=== PATIENT | male | born 1945 | race Caucasian/White ===

== ENCOUNTER 2022-07-31 14:48 | Emergency (ER) | payer OTHER ==
--- OUTSIDE RECORDS SUMMARY | 2022-07-31 14:53 | XMS REPORT | Continuity of Care Document ---
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 06-09 [facility] insufficie insufficie 00:00: ncy ncy 00 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 06-09 Health artery artery 00:00: stenosis stenosis 00 PAOD PAOD Disease Active [place] (periphera (periphera 04-28 He alth l arterial l arterial 00:00: occlusive occlusive 00 disease) disease) CVA CVA Diagnosis Active 2018-02-21 Mem oria Active 01-18 21:59:00 l 01/18/2018 00:00: Jean Paul vaughn [address] LF [id number] LF 1262-A Diagnosis Active 2018-01-18 Memoria Active 01-18 15:32:00 l 01/18/2018 00:00: Jean Paul vaughn [address] Hyperlipid Problem 2018-04-29 Joey king Hyperlipid 12:35:12 l unspecJean Paul zamorano unspecobed d 04/29/2018 [facility] Alcohol Alcohol Problem 2018-04-29 Me moria dependence dependence 12:35:12 henley Hermann uncomplica uncomplica mary alice mary alice 04/29/2018 [facility] Essential Essential Problem 2018-04-29 Memoria (primary) (primary) 12:35:12 l hypertensi hypertensi He rmann on on 04/29/2018 [facility] Coma Coma Problem 2018-04-29 Memor ia scale, scale, 12:35:12 l eyes open, eyes open, He rmann spontaneou spontaneou s, at s, at arrival to arrival to emergency emergency department department 8 [facility] Coma Coma Problem 2018-04-29 Memor ia scale, scale, 12:35:12 l best motor best motor He rmann response, response, localizes localizes pain, at pain, at arrival to arrival to emergency emergency department department 8 [facility] NIHSS NIHSS Problem 2018-04-29 Memor ia score 0 score 0 12:35:12 l 04/29/2018 Jean Paul vaughn [facility] Nicotine Nicotine Problem 2018-04-29 Memoria dependence dependence 12:35:12 l , Bob cigarettes cigarettes , , uncomplica uncomplica mary alice mary alice 04/29/2018 [facility] 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-29 Memoria and and 12:35:12 l stenosis stenosis Jean Paul vaughn of left of left carotid carotid artery artery 04/29/2018 [facility] Status Status Problem 2018-04-29 Irwin cayla post post 12:35:12 l administra administra He rmann tion of tion of tPA (rtPA) tPA (rtPA) in a in a different different facility facility within the within the last 24 last 24 hours hours prior to prior to admission admission to current to current facility facility 04/29/2018 [facility] CEREBRAL CEREBRAL Diagnosis Active 2018-02-21 Memoria INFARCTION INFARCTION 21:59:00 l , Bob UNSPECIFIE UNSPECIFIE D D Active [facility] Coma Coma Problem 2018-04-29 Memor ia scale, scale, 12:35:12 l best best [place] verbal verbal response, response, none, at none, at arrival to arrival to emergency emergency department department 04/29/2018 [facility] Hemiplegia Problem 2018-04-29 M emoria , Hemiplegia 12:35:12 l unspecifie Jean Paul n d unspecifie affecting d right affecting dominant right side dominant side 04/29/2018 [facility] Hypertensi Hypertens Problem 2018-04-29 Memoria ve emmanuelle 12:35:12 l emergency emergency Herm abundio 04/29/2018 [facility] Paroxysmal Paroxysma Problem 2018-04-29 Memoria atrial l atrial 12:35:12 l fibrillati fibrillati He rmann on on 04/29/2018 [facility] Aphasia Aphasia Problem 2018-04-29 M emoria 04/29/2018 12:35:12 l [facility] History of Past Illness Condition Condition Condition Status Onset Resolution Last Treating Co mments Source Name Details Category Date Date Treatment Clinician Date Cerebral Cerebral Problem 2017-2018-04-29 2018-04-29 Memoria infarction infarction 4-17 12:35:12 12:35:12 l due to due to 03:14: Bob embolism embolism 17 of left of left middle middle cerebral cerebral artery artery 02/22/2018 04/29/2018 [facility] Allergies, Adverse Reactions, Alerts This patient has no known allergies or adverse reactions. Social History Social Habit Start Date Stop Date Quantity Comments Source Tobacco use and 2021-06-10 2021-06-10 Never used [facility] exposure 00:00:00 00:00:00 Sex Ass[birth year] [facility] 00:00:00 00:00:00 Smoking Status Start Date Stop Date Source Former smoker 2021-06-10 00:00:00 2021-06-10 00:00:00 [facility] Social History 2018-01-18 21:57:45 [facility] Medications Ordered Filled Start Stop Current Ordering Indication Dosage Frequency Signature Comments Components Source Medication Medication Date Date Medication? Clinician (SIG) Name Name Apixaban Yes Take by [place] (ELIQUIS 6-29 mouth. Health PO) 12:55: 29 Apixaban Yes Take by [place] (ELIQUIS 6-22 mouth. Health PO) 16:25: 01 Lisinopril No Notes: Memor ia 3-16 (Same as: l 14:53: PrinivilJulissaBob Zestril) NIFEdipine No Notes: Memor ia 60 mg oral 3-16 (Same as: l tablet, 14:00: Adalat CC, Herm abundio extended 00 Procardia release XL) Give on empty stomach. Take 1 hour before or 2 hours after meal; "Avoid grapefruit and grapefruit juice". Do not crush Eliquis 2018-0 No 5 mg, 1 Memoria 3-16 tab, l 14:00: Route: PO, [place] 00 Drug form: TAB, Q12H, Dosing Weight 83.2, kg, Start date: 01/21/18 9:00:00 CDT, Duration: 30 day, Stop date: 02/19/18 21:00:00 CDT Lipitor 2018-0 No Notes: Memoria 3-16 (Same as: l 02:00: Lipitor) Bob 00 apixaban 5 2018-0 Yes 5 mg, PO, Me moria MG Oral 3-15 Q12H, # 60 l Tablet 21:50: tab, 3 Bob [Eliquis] 00 Refill(s) NIFEdipine 2017-0 Yes 60 mg, PO, M emoria 60 mg oral 3-15 Daily, .., l tablet, 21:46: # 30 tab, Chrissy nn extended 00 3 release Refill(s) lisinopril 2017-0 Yes 20 mg = 1 Me moria 20 mg oral 3-15 tab, PO, l tablet 21:46: Daily, # [place] 00 30 tab, 3 Refill(s) atorvastati 2017-0 Yes 40 mg = 1 M emoria n 40 mg 3-15 tab, PO, l oral tablet 21:46: Bedtime, # [place] 00 30 tab, 3 Refill(s) NIFEdipine 2017-0 No Notes: Memor ia 30 mg oral 3-15 (Same as: l tablet, 21:31: Adalat CC, Herm abundio extended 00 Procardia release XL) Give on empty stomach. Take 1 hour before or 2 hours after meal; "Avoid grapefruit and grapefruit juice". Do not crush Metoprolol 2018-0 No 1 mg, Memori a 3-15 Route: l 15:46: IVP, [place] 00 Q5Min, Dosing Weight 83.2, kg, PRN Other -See Comment, Start date: 01/20/18 10:46:00 CDT, Duration: 5 doses or times, Stop date: Limited # of times Fentanyl 2018-0 No 50 Memoria 3-15 microgram, l 15:46: Route: Bob 00 IVP, Q5Min, Dosing Weight 83.2, kg, PRN Pain Score 7-10, Priority: Routine, Start date: 01/20/18 10:46:00 CDT, Duration: 2 doses or times, Stop date: Limited # of times Ondansetron 2018-0 No 4 mg, Memor ia 3-15 Route: l 15:40: IVP, ONCE, Bob 00 Dosing Weight 83.2, kg, PRN Nausea & Vomiting, Start date: 01/20/18 10:40:00 CDT Labetalol 2018-0 No 10 mg, Memori a 3-15 Route: l 15:40: IVP, [place] 00 Q5Min, Dosing Weight 83.2, kg, PRN Elevated BP, Start date: 01/20/18 10:40:00 CDT, Duration: 5 doses or times, Stop date: Limited # of times ANES 2018-0 No 0.625 mg, Memoria Enalaprilat 3-15 Route: l 15:40: IVP, Bob 00 Q5Min, Dosing Weight 83.2, kg, PRN Elevated BP, Start date: 01/20/18 10:40:00 CDT, Duration: 4 doses or times, Stop date: Limited # of times Hydralazine 2018-0 No 10 mg, Irwin cayla 3-15 Route: l 15:40: IVP, Bob 00 Q20Min, Dosing Weight 83.2, kg, PRN Elevated BP, Start date: 01/20/18 10:40:00 CDT, Duration: 2 doses or times, Stop date: Limited # of times Naloxone 2018-0 No 0.4 mg, Memori a 3-15 Route: l 15:40: IVP, Bob 00 Q2MIN, Dosing Weight 83.2, kg, PRN Narcotic Reversal, Start date: 01/20/18 10:40:00 CDT, Duration: 8 doses or times, Stop date: Limited # of times Flumazenil 2018-0 No 0.2 mg, Irwin cayla 3-15 Route: l 15:40: IVP, PRN, Bob 00 Dosing Weight 83.2, kg, PRN Benzodiaze pine Reversal, Initial dose, Start date: 01/20/18 10:40:00 CDT, Duration: 30 day, Stop date: 02/19/18 10:39:00 CDT Omnipaque 2017- No 150 ml, Memor ia 350 3-15 Route: l 14:41: INTRAARTER [place] 00 IAL, Dosing Weight 83.2, kg, ONCE, Start date: 01/20/18 9:41:00 CDT, Stop date: 01/20/18 9:41:00 CDT Aspirin 325 No Notes: Irwin cayla MG Enteric 3-15 Take with l Coated 14:00: food. Bob Tablet 00 NIFEdipine No Notes: Memor ia 30 mg oral 3-15 (Same as: l tablet, 13:20: Adalat CC, Herm abundio extended 00 Procardia release XL) Give on empty stomach. Take 1 hour before or 2 hours after meal; "Avoid grapefruit and grapefruit juice". Do not crush Lisinopril No Notes: Memor ia 3-15 (Same as: l 11:49: Prinivil, Bob 00 Zestril) heparin No Notes: Memoria sodium, 3-14 porcine l porcine 21:00: heparin Bob 2500 UNT/ML 00 Injectable Solution Dextrose No 25 gm, 50 Irwin cayla 50% Syringe 3-14 mL, Route: l 16:14: IVP, Drug [place] 00 Form: INJ, Dosing Weight 83.2, kg, PRN, PRN Abnormal Lab Result, Start date: 01/19/18 11:14:00 CDT, Duration: 30 day, Stop date: 02/18/18 11:13:00 CDT Regular No 60 units) Irwin cayla Insulin, 3-14 WASTE: F/P l Human 100 16:14: - Black; E He rmann UNT/ML 00 - Injectable Municipal Solution Trash Bin Stable for 28 days at room temperatur e Expires in days from ____Date Insulin No 8 unit, Memoria regular 3-14 Route: l 16:11: SUB-Q, Bob 00 TID-Before Meals, Dosing Weight 83.2, kg, PRN Blood Glucose Results, Start date: 01/19/18 11:11:00 CDT, Duration: 30 day, Stop date: 02/18/18 11:10:00 CDT Glucagon 2017-0 No 1 mg, Memoria 3-14 Route: IM, l 16:11: PRN, Dosing Weight 83.2, kg, PRN Blood Glucose Results, Start date: 01/19/18 11:11:00 CDT, Duration: 30 day, Stop date: 02/18/18 11:10:00 CDT Dextrose 2018-0 No 25 mL, Memoria 50% Syringe 3 Route: l 16:11: IVP, Dosing Weight 83.2, kg, PRN, PRN Blood Glucose Results, Start date: 01/19/18 11:11:00 CDT, Duration: 30 day, Stop date: 02/18/18 11:10:00 CDT Regular 2018-0 No 3 unit, Memoria Insulin, 01-19 Route: l Human 100 16:11: SUB-Q, Jean Paul n UNT/ML 00 PRN, Injectable Dosing Solution Weight 83.2, kg, PRN Abnormal Lab Result, Start date: 01/19/18 11:11:00 CDT, Duration: 30 day, Stop date: 02/18/18 11:10:00 CDT metoprolol No Notes: Memor ia tartrate 01-19 (Same as: l 16:07: Lopressor) 12.5 mg=1/2 X 25 mg TAB Versed No 1 mg, Memoria 3-14 Route: l 16:00: IVP, ONCE, Dosing Weight 83.2, kg, Start date: 01/19/18 11:00:00 CDT, Stop date: 01/19/18 11:00:00 CDT Versed No Notes: Memoria 3-14 (Same as: l 15:43: Versed) MEDICATION WASTE Product Size: 2 mg Product Wasted: ___ mg Hydralazine No Notes: Irwin cayla 3-14 (Same as: l 15:13: Apresoline ) Push over 5 minutes Plavix No Notes: Memoria 3-14 (Same As: l 14:14: Plavix) Aspirin 2018-0 No Notes: Do Memor ia 3-14 not crush l 14:14: or chew. [place] 00 (Same As: Ecotrin) sennosides, No Notes: Irwin cayla INTERMEDIATE 3-14 (Same as: l 14:00: Senokot) [place] 00 Docusate No Notes: Memoria 3-14 (Same as: l 14:00: Colace) [place] 00 (Do Not Crush) Sodium No 1,000 mL, Memori a Chloride 3-14 Rate: 50 l 0.9% IV 10:22: ml/hr, Bob 1,000 mL 00 Infuse over: 20 hr, Route: IV, Dosing Weight 85.4 kg, Total Volume: 1,000, Start date: 01/19/18 5:22:00 CDT, Duration: 30 day, Stop date: 02/18/18 5:21:00 CDT, 2.02, m2 Calcium No Notes: Memoria Carbonate 3-14 (Same As: l 500 MG 05:04: Tums) [place] Chewable 00 Calcium Tablet Carbonate 500 mg = 200 mg elemental calcium Dose = mg calcium carbonate ( mg elemental calcium) potassium No Notes: Memori a phosphate 3-14 (Same as: l 05:04: K Bob 00 Phosphate. ) 1 mMol phoshate has 1.47 mEq potassium Infuse over 4 hours sodium No 45 mmol, Memoria phosphate 3-14 15 mL, l 05:04: Route: Bob 00 IVPB, PRN, Dosing Weight 85.4, kg, PRN Abnormal Lab Result, Start date: 01/19/18 0:04:00 CDT, Duration: 30 day, Stop date: 02/18/18 0:03:00 CDT, FOR ICU USE ONLY Potassium No Notes: Memori a Chloride 3-14 (Same as: l 05:04: Potassium [place] 00 Chloride) Magnesium No Notes: Memori a Sulfate 3-14 WASTE: F/P l 05:04: - Sink; E [place] - Municipal Trash Bin Calcium No Notes: Memoria Gluconate 3-14 WASTE: F/P l 05:04: - Sink; E [place] - Municipal Trash Bin Magnesium No Notes: Memori a Oxide -14 (Same as: l 05:04: Mag-Ox Bob 00 400) Magnesium oxide 691pi=640s g elemental magnesium Dose=____m g magnesium oxide (___mg elemental magnesium) potassium No Notes: Memori a phosphate-s - (Same as: l odium 05:04: Phos-NaK) Bob phosphate 00 Each 1.5 250 mg-280 gm pkt has mg-160 mg 250mg oral powder phosphorou for s. Mix reconstitut w/2.5oz ion water and stir. Saline No Notes: Memoria Flush 0.9% 01-19 Same as: l 02:00: BD Posiflush Sterile atorvastati No Notes: Irwin cayla n - Same as l 02:00: Lipitor Plavix No Notes: ( Memoria 3-13 Same as: l 22:37: Plavix) Bob 00 Aspirin No Notes: (Do Irwin cayla -13 Not Crush) l 22:36: Do not crush or chew. Saline No Notes: Memoria Flush 0.9% 01-18 (Same as: l 21:33: BD Posiflush) Labetalol No 105 mmHg, Me moria 3-13 Start l 21:33: date: Bob 00 01/18/18 16:33:00 CDT, Duration: 30 day, Stop date: 02/17/18 16:32:00 CDT Nicardipine No 20 mg, 200 Memoria 3-13 mL, Rate: l 21:33: Titrate, Start Dose: 5 mg/hr, Titration: 2.5 mg/hour every 15 minutes, Goal(s): SBP 140-180 mmHg, Max Dose: 15 mg/hr, Route: IV, Dosing Weight 85 kg, Total Volume: 200, Start date: 01/18/18 16:33:00 CDT, Duration: 30 day, Stop delmis... Cardene 40 No Notes: Memor ia mg in NS 01-18 Same as: l 200 mL 20:39: Charity Rojas (Titrate.) 00 Concentrat IV 40 mg ion: (0.2 mg /1 ml ) Labetalol No 10 mg, Memori a 3-13 Route: IV, l 20:08: ONCE, Bob 00 Dosing Weight 85, kg, Start date: 01/18/18 15:08:00 CDT, Stop date: 01/18/18 15:08:00 CDT Saline 0 No Notes: Memoria Flush 0.9% 3-13 (Same as: l 19:36: BD [place] Posiflush) Alteplase No 68.85 mg, Mem oria 3-13 Route: IV, l 19:35: ONCE, kg, [place] 00 Priority: STAT, Start date: 01/18/18 14:35:00 CDT, Stop date: 01/18/18 14:35:00 CDT Sodium 0 No 50 mL, Memoria Chloride 01-18 Rate: 75 l 0.9% IV 50 19:35: ml/hr, Chrissy nn mL 00 Infuse over: 0.7 hr, Route: IV, Dosing Weight 85.4 kg, Total Volume: 50, Priority: STAT, Start date: 01/18/18 14:35:00 CDT, Stop date: 02/17/18 14:34:00 CDT iodixanol No 100 mL, Memor ia 01-18 Route: l 19:15: IVP, Drug [place] 00 Form: SOLN, kg, ONCALL, STAT, Start date: 01/18/18 14:15:00 CDT, Duration: 1 doses or times, Dose = 2.2ml/kg, Max dose = 100ml -- "To be infused by Radiology Staff ONLY" Saline No Notes: Memoria Flush 0.9% 3-13 (Same as: l 19:13: BD [place] Posiflush) Vital Signs Vital Name Observation Time Observation Value Comments Source Respitory Rate 2018-01-21 14:00:00 Ángel Keller Systolic (mm Hg) 2018-01-21 14:00:00 Irwin Rojas Diastolic (mm Hg) 2018-01-21 14:00:00 Mem orial Bob Respitory Rate 2018-01-21 13:00:00 Memori al [place] Systolic (mm Hg) 2018-01-21 13:00:00 Irwin rial Bob Diastolic (mm Hg) 2018-01-21 13:00:00 Mem orial Bob Temperature Oral (F) 2018-01-21 12:10:00 97.7 F [facility] [place] Respitory Rate 2018-01-21 10:20:00 Memori al Bob Systolic (mm Hg) 2018-01-21 09:22:00 Irwin rial Bob Diastolic (mm Hg) 2018-01-21 09:22:00 Mem orial Bob Temperature Oral (F) 2018-01-21 09:22:00 100.5 F Memorial Bob Temperature Oral (F) 2018-01-21 04:59:00 99.9 F [facility] [place] Heart Rate 2018-01-19 16:59:00 [facility] [place] Heart Rate 2018-01-19 16:43:00 [facility] [place] Heart Rate 2018-01-19 16:28:00 Memorial Bob Weight 2018-01-19 11:08:00 [facility] [place] BMI Calculated 2018-01-18 21:35:00 Memori al [place] Weight 2018-01-18 21:35:00 Memorial Bob Height 2018-01-18 21:35:00 167.64 cm [facility] [place] Weight 2018-01-18 19:57:00 Memorial Bob Height 2018-01-18 19:57:00 170.18 cm Memorial Bob BMI Calculated 2018-01-18 19:57:00 Memori al Bob Procedures Procedure Date / Time Performing Clinician Source Performed Selective catheter 2018-01-20 13:56:00 [facility] [place] placement, vertebral artery, unilateral, with angiography of the ipsilateral vertebral circulation and all associated radiological supervision and interpretation, includes angiography of the cervicocerebral arch, when performed Carpal tunnel release [facility] ermann bilateral Knee replacement left [facility] ermann Encounters Start End Encounter Admission Attending Care Care Encounter Source Date/Time Date/Time Type Type Clinicians Facility Department ID 2021-05-06 Outpatient [facility] [id number] [place] 14:17:19 Health 2021-05-06 Outpatient [facility] [id number] [place] 14:16:24 Health 2021-05-06 Outpatient [facility] [id number] [place] 14:11:46 [facility] 2021-03-28 Outpatient RENE [facility] [id number] [place] 10:47:13 [facility] 2021-06-10 2021-06-10 Office Rene [facility] [id number] [place] 10:44:11 12:00:52 Visit [facility] [id number] [place] [address] [id number] 2021-04-29 2021-04-29 Office Rene [facility] [id number] [place] 08:09:44 10:47:59 Visit [facility] [id number] [place] [address] [id number] 2018-01-18 2018-01-21 Inpatient Pending sale to [facility] [id number] Memoria 19:02:00 17:40:[address] 2018-01-18 2018-01-21 Outpatient Osiris [facility] [id number] 14:02:00 12:40:[address] [place] [address] Results Test Description Test Time Test Comments Results Result Comments Source HEMATOLOGY 2018-01-21 06:13:00 Test Item Value Reference Range Interpretation Comme nts Lymphocytes # (test code = Lymphocytes #) 1.8 1.0-5.5 [id number] 06:13:00 Test Item Value Reference Range Interpretation Comments Eosinophils # (test code 0.2 See_Comment [A utomated message] The = Eosinophils #) system whic h generated this result tra nsmitted reference range : <=0.5. The reference r melody was not used to int erpret this result as normal/abnormal . [id number] 06:13:00 Test Item Value Reference Range Interpretation Comments Eosinophils (test code = 1.6 See_Comment [A utomated message] The Eosinophils) system which ge nerated this result tra nsmitted reference range : <=4.0. The reference r melody was not used to int erpret this result as normal/abnormal . [id number] 06:13:00 Test Item Value Reference Range Interpretation Comments MCHC (test code = MCHC) 34.8 32.0-36.0 [facility]P[id number] 06:13:00 Test Item Value Reference Range Interpretation Comments RDW (test code = RDW) 13.3 11.5-14.5 [id number] 06:13:00 Test Item Value Reference Range Interpretation Comments RBC (test code = RBC) 3.35 4.70-6.10 [facility] Hospit[id number] 06:13:00 Test Item Value Reference Range Interpretation Comments MCV (test code = MCV) 103.6 80.0-94.0 [facility] Hospital[id number] 06:13:00 Test Item Value Reference Range Interpretation Comments Hct (test code = Hct) 34.7 42.0-54.0 [facility] Hospit[id number] 06:13:00 Test Item Value Reference Range Interpretation Comments MCH (test code = MCH) 36.0 pg 27.0-31.0 [facility] Hospit[id number] 06:13:00 Test Item Value Reference Range Interpretation Comments Hgb (test code = Hgb) 12.1 14.0-18.0 [facility] H[id number] 06:13:00 Test Item Value Reference Range Interpretation Comments WBC (test code = WBC) 9.8 3.7-10.4 [facility] Hospit[id number] 06:13:00 Test Item Value Reference Range Interpretation Comments Platelet (test code = Platelet) 175 133-450 [facility] Hospit[id number] 06:13:00 Test Item Value Reference Range Interpretation Comments MPV (test code = MPV) 7.9 7.4-10.4 [facility] [id number] 06:13:00 Test Item Value Reference Range Interpretation Comments Ca Norm WB (test code = Ca Norm WB) 1.12 1.05-1.25 [facility] [id number] 06:13:00 Test Item Value Reference Range Interpretation Comments Ca Ion WB (test code = Ca Ion WB) 1.11 1.05-1.25 [facility]2018-03-16 06:13:00 Test Item Value Reference Range Interpretation Comments Magnesium Lvl (test code = Magnesium 1.8 1.8-2.4 Lvl) [facility]2018-03-16 06:13:00 Test Item Value Reference Range Interpretation Comments Phosphorus (test code = Phosphorus) 3.7 2.5-4.5 [facility]2018-03-16 06:13:00 Test Item Value Reference Range Interpretation Comments eGFR (test code = eGFR) 112 [facility]2018-03-16 06:13:00 Test Item Value Reference Range Interpretation Comments Potassium Lvl (test code = Potassium 3.8 3.5-5.1 Lvl) [facility]2018-03-16 06:13:00 Test Item Value Reference Range Interpretation Comments Chloride Lvl (test code = Chloride Lvl) 108 95-109 [facility]2018-03-16 06:13:00 Test Item Value Reference Range Interpretation Comments Calcium Lvl (test code = Calcium Lvl) 8.7 8.5-10.5 [facility]2018-03-16 06:13:00 Test Item Value Reference Range Interpretation Comments CO2 (test code = CO2) 22 24-32 [facility]2018-03-16 06:13:00 Test Item Value Reference Range Interpretation Comments Creatinine Lvl (test code = Creatinine 0.46 0.50-1.40 Lvl) [facility]2018-03-16 06:13:00 Test Item Value Reference Range Interpretation Comments Glucose Lvl (test code = Glucose Lvl) 86 70-99 [facility]2018-03-16 06:13:00 Test Item Value Reference Range Interpretation Comments BUN (test code = BUN) 9 7-22 [facility]2018-03-16 06:13:00 Test Item Value Reference Range Interpretation Comments Sodium Lvl (test code = Sodium Lvl) 141 135-145 [facility]2018-03-16 06:13:00 Test Item Value Reference Range Interpretation Comments AGAP (test code = AGAP) 14.8 10.0-20.0 [facility] Hospit[id number] 06:13:00 Test Item Value Reference Range Interpretation Comments Lymphocytes (test code = Lymphocytes) 18.8 20.0-40.0 [facility] Hospit[id number] 06:13:00 Test Item Value Reference Range Interpretation Comments Monocytes (test code = Monocytes) 9.7 2.0-12.0 [facility] H[id number] 06:13:00 Test Item Value Reference Range Interpretation Comments Macrocyte (test code = 1+ *ABN*(01/21/18 Macrocyte) 1:13 AM) [facility] Ho[id number] 06:13:00 Test Item Value Reference Range Interpretation Comments Segs (test code = Segs) 69.6 45.0-75.0 [facility] Hos[id number] 06:13:00 Test Item Value Reference Range Interpretation Comments Segs-Bands # (test code = Segs-Bands #) 6.8 1.5-8.1 [facility] Hos[id number] 06:13:00 Test Item Value Reference Range Interpretation Comments Monocytes # (test code 1.0 See_Comment [Aut omated message] The = Monocytes #) system which generated this result tra nsmitted reference range : <=0.8. The reference r melody was not used to int erpret this result as normal/abnormal . [facility] Hos[id number] 06:13:00 Test Item Value Reference Range Interpretation Comments Basophils (test code = 0.3 See_Comment [Aut omated message] The Basophils) system which ge nerated this result tra nsmitted reference range : <=1.0. The reference r melody was not used to int erpret this result as normal/abnormal . [facility] [id number] 18:14:00 Test Item Value Reference Range Interpretation Comments Troponin-T (test code 0.020 See_Comment [Auto mated message] The = Troponin-T) system which g enerated this result transmit mary alice reference range : <=0.100. The reference r melody was not used to interpr et this result as mark l/abnormal. [facility] [id number] 18:14:00 Test Item Value Reference Range Interpretation Comments Total CK (test code = Total CK) 472 12-191 [facility] [id number] 18:14:00 Test Item Value Reference Range Interpretation Comments Troponin-I (test code 0.32 See_Comment [Auto mated message] The = Troponin-I) system which g enerated this result transmit mary alice reference range : <=0.40. The reference r melody was not used to interpr et this result as mark l/abnormal. [facility] [id number] 18:14:00 Test Item Value Reference Range Interpretation Comments CK MB Index (test 0.6 1 See_Comment [Automate d message] The code = CK MB Index) system w [employer] generated this result transmit mary alice reference range : <=2.5. The reference range was not used to interpr et this result as mark l/abnormal. [facility] BrookannCARDIAC [id number] 18:14:00 Test Item Value Reference Range Interpretation Comments CK MB (test code = CK MB) 2.9 0.5-3.6 [facility]OkiwjjkLXYVHWXKMP6338-22-92 14:32:00 Test Item Value Reference Range Interpretation Comments POC Activated Clotting Time (test code 137 s = POC Activated Clotting Time) [facility] BrookannCARhipages.com.auAC YSTYARW9430-46-57 13:49:00 Test Item Value Reference Range Interpretation Comments CK MB (test code = CK MB) 3.4 0.5-3.6 [facility] BrookannCARhipages.com.auAC KTSNTPJ2336-48-63 13:49:00 Test Item Value Reference Range Interpretation Comments CK MB Index (test 0.7 1 See_Comment [Automate d message] The code = CK MB Index) system w [employer] generated this result transmit mary alice reference range : <=2.5. The reference range was not used to interpr et this result as mark l/abnormal. [facility] BrookUn[facility]2018-03-15 13:49:00 Test Item Value Reference Range Interpretation Comments Troponin-I (test code 0.33 See_Comment [Auto mated message] The = Troponin-I) system which g enerated this result transmit mary alice reference range : <=0.40. The reference r melody was not used to interpr et this result as mark l/abnormal. [facility] BrookEssess, IncAC [id number] 13:49:00 Test Item Value Reference Range Interpretation Comments Troponin-T (test code 0.063 See_Comment [Auto mated message] The = Troponin-T) system which g enerated this result transmit mary alice reference range : <=0.100. The reference r melody was not used to interpr et this result as mark l/abnormal. [facility] babberly2018-03-15 13:49:00 Test Item Value Reference Range Interpretation Comments Total CK (test code = Total CK) 511 12-191 [facility] BrookCkepznnWUOTEYZTNJ6419-60-53 09:10:00 Test Item Value Reference Range Interpretation Comments Hgb (test code = Hgb) 12.6 14.0-18.0 [facility] BrookMeiidleKOBRTZENCJ1511-36-20 09:10:00 Test Item Value Reference Range Interpretation Comments MCV (test code = MCV) 104.2 80.0-94.0 [facility] BrookIzvjaysBTAELWYKET5309-39-29 09:10:00 Test Item Value Reference Range Interpretation Comments MCH (test code = MCH) 35.8 pg 27.0-31.0 [facility] BrookVsltyksVFUOUNOBOV0872-39-38 09:10:00 Test Item Value Reference Range Interpretation Comments MPV (test code = MPV) 7.4 7.4-10.4 [facility] BrookRddnolvZWNTRUFZEX8286-63-21 09:10:00 Test Item Value Reference Range Interpretation Comments MCHC (test code = MCHC) 34.4 32.0-36.0 [facility] BrookGdpxvvoRMEOVFKSLM1369-23-57 09:10:00 Test Item Value Reference Range Interpretation Comments RDW (test code = RDW) 13.6 11.5-14.5 [facility] BrookBztzxxqYPELKYBEXM2571-63-04 09:10:00 Test Item Value Reference Range Interpretation Comments Platelet (test code = Platelet) 170 133-450 [facility] BrookannPARATHYROID [id number] 09:10:00 Test Item Value Reference Range Interpretation Comments Ca Ion WB (test code = Ca Ion WB) 1.09 1.05-1.25 [facility] BrookannPARATHYROID [id number] 09:10:00 Test Item Value Reference Range Interpretation Comments Ca Norm WB (test code = Ca Norm WB) 1.11 1.05-1.25 [facility] HermannCHEM [id number] 09:10:00 Test Item Value Reference Range Interpretation Comments Magnesium Lvl (test code = Magnesium 1.9 1.8-2.4 Lvl) [facility] BrookannCHEM [id number] 09:10:00 Test Item Value Reference Range Interpretation Comments Phosphorus (test code = Phosphorus) 2.6 2.5-4.5 [facility] AhtzmbzGEXABNBGIVNV5468-47-63 09:10:00 Test Item Value Reference Range Interpretation Comments AGAP (test code = AGAP) 12.8 10.0-20.0 [facility]QbfqxprDRWMABBMADCJ3054-36-88 09:10:00 Test Item Value Reference Range Interpretation Comments eGFR (test code = eGFR) 116 [facility] HospitalDdbwufoUPTARDNHHLBT7701-23-35 09:10:00 Test Item Value Reference Range Interpretation Comments Glucose Lvl (test code = Glucose Lvl) 83 70-99 [facility] HospitalRmcrbizPLMSUMNNWSYU3645-94-55 09:10:00 Test Item Value Reference Range Interpretation Comments BUN (test code = BUN) 10 7-22 [facility] HospitalOcuohyzYRRROXLUPWYX8676-06-35 09:10:00 Test Item Value Reference Range Interpretation Comments Creatinine Lvl (test code = Creatinine 0.42 0.50-1.40 Lvl) [facility] HospitalDuwyyiyRWXDDVDWFCSJ7030-57-63 09:10:00 Test Item Value Reference Range Interpretation Comments Sodium Lvl (test code = Sodium Lvl) 141 135-145 [facility] HospitalMkenvdeHZPFYNYYERPI5283-97-74 09:10:00 Test Item Value Reference Range Interpretation Comments Potassium Lvl (test code = Potassium 3.8 3.5-5.1 Lvl) [facility] HospitalNtlbftiWDNFHQKVXHOU8045-12-71 09:10:00 Test Item Value Reference Range Interpretation Comments CO2 (test code = CO2) 24 24-32 [facility] HospitalTjweffeGNVLAAUHTMYH1235-95-35 09:10:00 Test Item Value Reference Range Interpretation Comments Chloride Lvl (test code = Chloride Lvl) 108 95-109 [facility] HospitalYmditntTECDSFCLGBGS9222-43-41 09:10:00 Test Item Value Reference Range Interpretation Comments Calcium Lvl (test code = Calcium Lvl) 8.6 8.5-10.5 [facility]IdarxpmIDBALXOGXX4877-84-80 09:10:00 Test Item Value Reference Range Interpretation Comments Eosinophils (test code = 1.2 See_Comment [A utomated message] The Eosinophils) system which ge nerated this result tra nsmitted reference range : <=4.0. The reference r melody was not used to int erpret this result as normal/abnormal . [facility] HospitalZbjxubxTJMNEVZBTC8047-38-97 09:10:00 Test Item Value Reference Range Interpretation Comments Monocytes (test code = Monocytes) 10.4 2.0-12.0 [facility] HospitalRlnuxqgGEXHQOCZRV0283-91-50 09:10:00 Test Item Value Reference Range Interpretation Comments Segs-Bands # (test code = Segs-Bands #) 6.4 1.5-8.1 [facility] HospitalGqkxfgdNXJNXXPPXB0238-54-38 09:10:00 Test Item Value Reference Range Interpretation Comments Basophils (test code = 0.4 See_Comment [Aut omated message] The Basophils) system which ge nerated this result tra nsmitted reference range : <=1.0. The reference r melody was not used to int erpret this result as normal/abnormal . [facility] HospitalZftzvyoSGPAXQFLYQ7850-29-12 09:10:00 Test Item Value Reference Range Interpretation Comments Monocytes # (test code 1.0 See_Comment [Aut omated message] The = Monocytes #) system which generated this result tra nsmitted reference range : <=0.8. The reference r melody was not used to int erpret this result as normal/abnormal . [facility] HospitalEirhahiSHCLQJEZTR8905-55-56 09:10:00 Test Item Value Reference Range Interpretation Comments Eosinophils # (test code 0.1 See_Comment [A utomated message] The = Eosinophils #) system whic h generated this result tra nsmitted reference range : <=0.5. The reference r melody was not used to int erpret this result as normal/abnormal . [facility] HospitalLuemnsySSKRDYSNZO5812-14-18 09:10:00 Test Item Value Reference Range Interpretation Comments Lymphocytes # (test code = Lymphocytes 1.7 1.0-5.5 #) [facility] HospitalCsuekbeTXYZCUDEQT0555-06-84 09:10:00 Test Item Value Reference Range Interpretation Comments Macrocyte (test code = 1+ *ABN*(01/20/18 Macrocyte) 4:10 AM) [facility] HospitalEsioqgsDJRZWMNPAG3708-88-45 09:10:00 Test Item Value Reference Range Interpretation Comments Lymphocytes (test code = Lymphocytes) 18.1 20.0-40.0 [facility] HospitalHepbcvdPCQTGBJEZY8866-99-12 09:10:00 Test Item Value Reference Range Interpretation Comments Segs (test code = Segs) 69.9 45.0-75.0 [facility] HospitalUajlikgXGAWPLYIWS1291-72-87 09:10:00 Test Item Value Reference Range Interpretation Comments WBC (test code = WBC) 9.2 3.7-10.4 [facility]QwyevbvXYCMXRYGNZ4072-80-57 09:10:00 Test Item Value Reference Range Interpretation Comments Hct (test code = Hct) 36.8 42.0-54.0 [facility] HospitalJjjgnurNUPJIFERCJ6294-34-86 09:10:00 Test Item Value Reference Range Interpretation Comments RBC (test code = RBC) 3.53 4.70-6.10 [facility] JVJGRFP2662-94-77 22:12:00 Test Item Value Reference Range Interpretation Comments Troponin-T (test code 0.075 See_Comment [Auto mated message] The = Troponin-T) system which g enerated this result transmit mary alice reference range : <=0.100. The reference r melody was not used to interpr et this result as mark l/abnormal. [facility] BrookPcumothTFJDDPRHDGDZ1722-36-49 20:02:00 Test Item Value Reference Range Interpretation Comments Potassium Lvl (test code = Potassium 4.1 3.5-5.1 Lvl) [facility] [id number] 18:01:00 Test Item Value Reference Range Interpretation Comments Vitamin B12 Lvl (test code = Vitamin 545 100-1947 B12 Lvl) [facility] [id number] 18:01:00 Test Item Value Reference Range Interpretation Comments Folate Lvl (test code = Folate Lvl) 25.9 [facility] HospitalSuhcociSLSUIOWPUU2407-00-44 18:01:00 Test Item Value Reference Range Interpretation Comments Plav Effect Plt (test code = Plav 143 Effect Plt) [facility] HospitalWieduzqSAVUNJKINS1097-45-85 18:01:00 Test Item Value Reference Range Interpretation Comments ASA Effect Plt (test code = ASA Effect 474 Plt) [facility] GZXEB1807-04-03 15:43:00 Test Item Value Reference Range Interpretation Comments Folate Lvl (test code = Folate Lvl) 25.5 [facility] [id number] 15:43:00 Test Item Value Reference Range Interpretation Comments Vitamin B12 Lvl (test code = Vitamin 933 783-1282 B12 Lvl) [facility] [id number] 15:43:00 Test Item Value Reference Range Interpretation Comments UDS Note (test code = See Note *NA*(01/19/18 UDS Note) 10:43 AM) [facility] [id number] 15:43:00 Test Item Value Reference Range Interpretation Comments U Cannab Scr (test Negative *NA*(01/19/18 code = U Cannab Scr) 10:43 AM) [facility] [id number] 15:43:00 Test Item Value Reference Range Interpretation Comments U Phencyc Scr (test Negative *NA*(01/19/18 code = U Phencyc Scr) 10:43 AM) [facility] [id number] 15:43:00 Test Item Value Reference Range Interpretation Comments U Opiate Scr (test Negative *NA*(01/19/18 code = U Opiate Scr) 10:43 AM) [facility] [id number] 15:43:00 Test Item Value Reference Range Interpretation Comments U Benzodia Scr (test Negative *NA*(01/19/18 code = U Benzodia Scr) 10:43 AM) [facility] [id number] 15:43:00 Test Item Value Reference Range Interpretation Comments U Cocaine Scr (test Negative *NA*(01/19/18 code = U Cocaine Scr) 10:43 AM) [facility] [id number] 15:43:00 Test Item Value Reference Range Interpretation Comments U Amph Scr (test code Negative *NA*(01/19/18 = U Amph Scr) 10:43 AM) [facility] [id number] 15:43:00 Test Item Value Reference Range Interpretation Comments U Micaela Scr (test code Negative *NA*(01/19/18 = U Micaela Scr) 10:43 AM) [facility] [id number] 15:43:00 Test Item Value Reference Range Interpretation Comments UA Urobilinogen (test code = UA >=12.0 mg/dL 0.1-1.0 Urobilinogen) [facility] [id number] 15:43:00 Test Item Value Reference Range Interpretation Comments UA Leuk Est (test Negative (01/19/18 10:43 code = UA Leuk Est) AM) [facility] [id number] 15:43:00 Test Item Value Reference Range Interpretation Comments UA Mucus (test code = UA Mucus) Few /LPF [facility] [id number] 15:43:00 Test Item Value Reference Range Interpretation Comments UA Blood (test code = Negative (01/19/18 10:43 UA Blood) AM) [facility] AND [id number] 15:43:00 Test Item Value Reference Range Interpretation Comments UA Nitrite (test code Negative (01/19/18 10:43 = UA Nitrite) AM) [facility] AND [id number] 15:43:00 Test Item Value Reference Range Interpretation Comments UA Bili (test code = Negative *NA*(01/19/18 UA Bili) 10:43 AM) [facility] AND [id number] 15:43:00 Test Item Value Reference Range Interpretation Comments UA Sq Epi (test code = UA Sq Epi) None Seen [facility] AND [id number] 15:43:00 Test Item Value Reference Range Interpretation Comments UA Ketones (test code = UA Ketones) 40 mg/dL [facility] AND [id number] 15:43:00 Test Item Value Reference Range Interpretation Comments UA Glucose (test code = UA Negative mg/dL Glucose) [facility] AND [id number] 15:43:00 Test Item Value Reference Range Interpretation Comments UA pH (test code = UA pH) 7.0 1 5.0-8.0 [facility] AND [id number] 15:43:00 Test Item Value Reference Range Interpretation Comments UA Protein (test code = UA Protein) 30 mg/dL [facility] AND [id number] 15:43:00 Test Item Value Reference Range Interpretation Comments UA Turbidity (test code Slight *ABN*(01/19/18 = UA Turbidity) 10:43 AM) [facility] AND [id number] 15:43:00 Test Item Value Reference Range Interpretation Comments UA Spec Grav (test code = UA Spec 1.018 1 Grav) [facility] AND [id number] 15:43:00 Test Item Value Reference Range Interpretation Comments UA Color (test code = Yellow *NA*(01/19/18 UA Color) 10:43 AM) [facility]BA[facility] - [id number] 15:09:00 Test Item Value Reference Range Interpretation Comments MRSA by PCR (test Negative (01/19/18 10:09 code = MRSA by PCR) AM) [employer] ProductionsNmqkwhsSCJLSFFRDL7171-31-54 09:30:00 Test Item Value Reference Range Interpretation Comments PTT (test code = PTT) 35.4 s 22.9-35.8 [facility] ProductionsYrkndtkCOVOOUCCZC7411-45-99 09:30:00 Test Item Value Reference Range Interpretation Comments PT (test code = PT) 16.1 s 12.0-14.7 [employer] ProductionsGpkvazuNSSKRNJFSD8838-90-62 09:30:00 Test Item Value Reference Range Interpretation Comments INR (test code = INR) 1.28 1 0.85-1.17 [employer] [id number] 09:23:00 Test Item Value Reference Range Interpretation Comments Antibody Scrn (test Negative (01/19/18 4:23 code = Antibody Scrn) AM) [employer] [id number] 09:23:00 Test Item Value Reference Range Interpretation Comments ABO/Rh (test code = ABO/Rh) A POS [employer]2018-03-14 09:23:00 Test Item Value Reference Range Interpretation Comments Troponin-I (test code 1.48 See_Comment [Auto mated message] The = Troponin-I) system which g enerated this result transmit mary alice reference range : <=0.40. The reference r melody was not used to interpr et this result as mark l/abnormal. [employer]2018-03-14 09:23:00 Test Item Value Reference Range Interpretation Comments Total CK (test code = Total CK) 399 12-191 [employer]2018-03-14 09:23:00 Test Item Value Reference Range Interpretation Comments CK MB Index (test 1.8 1 See_Comment [Automate d message] The code = CK MB Index) system w [facility] generated this result transmit mary alice reference range : <=2.5. The reference range was not used to interpr et this result as mark l/abnormal. [employer]2018-03-14 09:23:00 Test Item Value Reference Range Interpretation Comments CK MB (test code = CK MB) 7.1 0.5-3.6 [employer] [id number] 09:23:00 Test Item Value Reference Range Interpretation Comments Globulin (test code = Globulin) 2.9 2.7-4.2 [place] [id number] 09:23:00 Test Item Value Reference Range Interpretation Comments A/G Ratio (test code = A/G Ratio) 1.1 1 0.7-1.6 [place] [id number] 09:23:00 Test Item Value Reference Range Interpretation Comments Bili Indirect (test 0.4 See_Comment [Automa mary alice message] The code = Bili Indirect) system which generated this result tra nsmitted reference range : <=1.0. The reference r melody was not used to int erpret this result as normal/abnormal . [facility]2018-03-14 09:23:00 Test Item Value Reference Range Interpretation Comments AST (test code = AST) 33 See_Comment [Auto mated message] The system which ge nerated this result transmit mary alice reference range : <=37. The reference range was not used to interpr et this result as mark l/abnormal. [facility]2018-03-14 09:23:00 Test Item Value Reference Range Interpretation Comments Alk Phos (test code = Alk Phos) 60 39-136 [facility]2018-03-14 09:23:00 Test Item Value Reference Range Interpretation Comments Bili Total (test code = Bili Total) 0.6 0.2-1.3 [place] [id number] 09:23:00 Test Item Value Reference Range Interpretation Comments Bili Direct (test code 0.2 See_Comment [Aut omated message] The = Bili Direct) system which generated this result tra nsmitted reference range : <=0.3. The reference r melody was not used to int erpret this result as mark l/abnormal. [facility]2018-03-14 09:23:00 Test Item Value Reference Range Interpretation Comments Albumin Lvl (test code = Albumin Lvl) 3.1 3.5-5.0 [facility]2018-03-14 09:23:00 Test Item Value Reference Range Interpretation Comments ALT (test code = ALT) 22 See_Comment [Auto mated message] The system which ge nerated this result transmit mary alice reference range : <=65. The reference range was not used to interpr et this result as mark l/abnormal. [facility]2018-03-14 09:23:00 Test Item Value Reference Range Interpretation Comments Total Protein (test code = Total 6.0 6.4-8.4 Protein) [facility]2018-03-14 09:23:00 Test Item Value Reference Range Interpretation Comments eGFR (test code = eGFR) 113 [facility]2018-03-14 09:23:00 Test Item Value Reference Range Interpretation Comments Calcium Lvl (test code = Calcium Lvl) 8.3 8.5-10.5 [facility]2018-03-14 09:23:00 Test Item Value Reference Range Interpretation Comments Sodium Lvl (test code = Sodium Lvl) 143 135-145 [facility]2018-03-14 09:23:00 Test Item Value Reference Range Interpretation Comments Chloride Lvl (test code = Chloride Lvl) 109 95-109 [facility]2018-03-14 09:23:00 Test Item Value Reference Range Interpretation Comments AGAP (test code = AGAP) 13.3 10.0-20.0 [facility]2018-03-14 09:23:00 Test Item Value Reference Range Interpretation Comments CO2 (test code = CO2) 24 24-32 [facility]2018-03-14 09:23:00 Test Item Value Reference Range Interpretation Comments BUN (test code = BUN) 13 7-22 [facility]2018-03-14 09:23:00 Test Item Value Reference Range Interpretation Comments Glucose Lvl (test code = Glucose Lvl) 73 70-99 [facility]2018-03-14 09:23:00 Test Item Value Reference Range Interpretation Comments Creatinine Lvl (test code = Creatinine 0.46 0.50-1.40 Lvl) [facility]2018-03-14 09:23:00 Test Item Value Reference Range Interpretation Comments Phosphorus (test code = Phosphorus) 3.0 2.5-4.5 [facility]2018-03-14 09:23:00 Test Item Value Reference Range Interpretation Comments Magnesium Lvl (test code = Magnesium 1.8 1.8-2.4 Lvl) [facility] HospitalBqmeogyDWSYZOHEAT1701-51-87 09:23:00 Test Item Value Reference Range Interpretation Comments MCV (test code = MCV) 103.4 80.0-94.0 [facility] HospitalTuygyenCRNRZOKPVL3314-54-33 09:23:00 Test Item Value Reference Range Interpretation Comments Hct (test code = Hct) 37.3 42.0-54.0 [facility] HospitalEfdmurhNFHBXSXURP8093-93-18 09:23:00 Test Item Value Reference Range Interpretation Comments MCH (test code = MCH) 35.8 pg 27.0-31.0 [facility] HospitalEejdkaxXZUZXIFOXQ4609-24-60 09:23:00 Test Item Value Reference Range Interpretation Comments WBC (test code = WBC) 9.2 3.7-10.4 [facility] HospitalYlnhloxDRTOCFCRJI3219-60-93 09:23:00 Test Item Value Reference Range Interpretation Comments RBC (test code = RBC) 3.61 4.70-6.10 [facility] HospitalEmjvvmyMQPUZUABCC6343-83-05 09:23:00 Test Item Value Reference Range Interpretation Comments Hgb (test code = Hgb) 12.9 14.0-18.0 [facility] HospitalIglennoSNBVULVPNH6901-79-48 09:23:00 Test Item Value Reference Range Interpretation Comments RDW (test code = RDW) 13.4 11.5-14.5 [facility] HospitalOifgndwCZXDOESLGH4999-37-57 09:23:00 Test Item Value Reference Range Interpretation Comments MPV (test code = MPV) 7.6 7.4-10.4 [facility] HospitalItvqudkRIHXXIIOGR1395-26-27 09:23:00 Test Item Value Reference Range Interpretation Comments Platelet (test code = Platelet) 179 133-450 [facility] HospitalUxgnjltOGDMZUZZBJ7578-48-57 09:23:00 Test Item Value Reference Range Interpretation Comments MCHC (test code = MCHC) 34.6 32.0-36.0 [facility] HospitalUsmwufsUYHJFHYLEB3663-59-67 09:23:00 Test Item Value Reference Range Interpretation Comments Macrocyte (test code = 1+ *ABN*(01/19/18 Macrocyte) 4:23 AM) [facility] HospitalEvzeyilZZULDLYDJH3096-63-36 09:23:00 Test Item Value Reference Range Interpretation Comments Monocytes # (test code 0.9 See_Comment [Aut omated message] The = Monocytes #) system which generated this result tra nsmitted reference range : <=0.8. The reference r melody was not used to int erpret this result as normal/abnormal . [facility] HospitalQfhcnreFJZAXPKBQE7114-73-92 09:23:00 Test Item Value Reference Range Interpretation Comments Eosinophils # (test code 0.1 See_Comment [A utomated message] The = Eosinophils #) system whic h generated this result tra nsmitted reference range : <=0.5. The reference r melody was not used to int erpret this result as normal/abnormal . [facility] HospitalDiitnutZHNOAMORYD4055-90-14 09:23:00 Test Item Value Reference Range Interpretation Comments Lymphocytes (test code = Lymphocytes) 19.6 20.0-40.0 [facility] HospitalXoxmuunBQKJQCOWYY4177-06-38 09:23:00 Test Item Value Reference Range Interpretation Comments Monocytes (test code = Monocytes) 9.3 2.0-12.0 [facility] HospitalOwuafdnRKKOGVCYAD3992-94-97 09:23:00 Test Item Value Reference Range Interpretation Comments Segs (test code = Segs) 70.1 45.0-75.0 [facility]TDHFA1175[facility]45-17 09:23:00 Test Item Value Reference Range Interpretation Comments Segs-Bands # (test code = Segs-Bands #) 6.4 1.5-8.1 [facility]WKXOHWFZGC3348-92-30 09:23:00 Test Item Value Reference Range Interpretation Comments Lymphocytes # (test code = Lymphocytes 1.8 1.0-5.5 #) [id number] 09:23:00 Test Item Value Reference Range Interpretation Comments Eosinophils (test code = 0.6 See_Comment [A utomated message] The Eosinophils) system which ge nerated this result tra nsmitted reference range : <=4.0. The reference r melody was not used to int erpret this result as normal/abnormal . [facility] HospitalVjqeeqtOZOLFOORCX9318-13-83 09:23:00 Test Item Value Reference Range Interpretation Comments Basophils (test code = 0.4 See_Comment [Aut omated message] The Basophils) system which ge nerated this result tra nsmitted reference range : <=1.0. The reference r melody was not used to int erpret this result as normal/abnormal . [facility]XrlfymyEKVKTYVMJ9130-46-10 09:23:00 Test Item Value Reference Range Interpretation Comments Myoglobin (test code = Myoglobin) 122 25-72 [facility]PARATHYRO[facility] [id number] 09:23:00 Test Item Value Reference Range Interpretation Comments Ca Ion WB (test code = Ca Ion WB) 1.13 1.05-1.25 [facility] [id number] 09:23:00 Test Item Value Reference Range Interpretation Comments Ca Norm WB (test code = Ca Norm WB) 1.13 1.05-1.25 [facility] 01:55:00 Test Item Value Reference Range Interpretation Comments VLDL (test code = VLDL) 12 1 [facility]anoWlowopqVGVNBZ9398-43-49 01:55:00 Test Item Value Reference Range Interpretation Comments LDL (Calculated) (test code = LDL 61 (Calculated)) [facility]anoCwykkicIKHFPY4717-61-80 01:55:00 Test Item Value Reference Range Interpretation Comments Chol (test code = Chol) 136 [facility]anoTkmplurKQXFWZ9403-18-18 01:55:00 Test Item Value Reference Range Interpretation Comments Trig (test code = Trig) 62 [facility] BrookWutnlfgUIWEPW0868-85-06 01:55:00 Test Item Value Reference Range Interpretation Comments HDL (test code = HDL) 63 [facility]anoKmdtomqGLIUQJ2700-11-69 01:55:00 Test Item Value Reference Range Interpretation Comments CHD Risk (test code = CHD Risk) 2.16 1 4.00-7.30 [facility] [id number] 01:55:00 Test Item Value Reference Range Interpretation Comments Hgb A1C (test code = Hgb A1C) 5.2 [facility]anoT[id number] 19:33:00 Test Item Value Reference Range Interpretation Comments G-value Rapid (test code = G-value 11.1 5.0-11.6 Rapid) [facility]anoEpmiuiqFEPDRVAOTP4686-89-09 19:33:00 Test Item Value Reference Range Interpretation Comments Estimated % Lysis Rapid 1.6 See_Comment [Au tomated message] The (test code = Estimated syste m which generated % Lysis Rapid) this result t ransmitted reference range : <=7.5. The reference r melody was not used to int erpret this result as normal/abnormal . [facility] Hospit[id number] 19:33:00 Test Item Value Reference Range Interpretation Comments Max Amplitude Rapid (test code = Max 69 mm 52-71 Amplitude Rapid) [facility] HospitalPrsprebUCJHDLTCPL9006-14-72 19:33:00 Test Item Value Reference Range Interpretation Comments ACT (TEG) Rapid (test code = ACT (TEG) 113 s 86-118 Rapid) [facility] HospitalRiiqjrqZTWDBQIDVH2066-20-80 19:33:00 Test Item Value Reference Range Interpretation Comments Split Point Rapid (test code = Split 0.5 min Point Rapid) [facility] HospitalDtdppnpINFEDHBUUH0786-15-26 19:33:00 Test Item Value Reference Range Interpretation Comments R-time Rapid (test code = R-time 0.7 min 0.4-0.7 Rapid) [facility] HospitalQptjdflYWQCHKIUJM5329-82-09 19:33:00 Test Item Value Reference Range Interpretation Comments K-time Rapid (test code = K-time 0.9 min 0.6-2.3 Rapid) [facility] HospitalIobggvxYYSFBSLOLH6917-44-04 19:33:00 Test Item Value Reference Range Interpretation Comments Angle Rapid (test code = Angle 77 degrees 64-80 Rapid) [facility]2018-03-13 19:14:00 Test Item Value Reference Range Interpretation Comments POC Creatinine (test code = POC 0.6 0.5-1.4 Creatinine) [facility] HospitalKhkiqynBFISKRABXA0594-62-27 19:10:00 Test Item Value Reference Range Interpretation Comments PT (test code = PT) 12.6 s 12.0-14.7 [facility] HospitalPwpbtuwJUHXQEZRPY8990-20-88 19:10:00 Test Item Value Reference Range Interpretation Comments INR (test code = INR) 0.94 1 0.85-1.17 [facility] HospitalVezktnhSPFHAWOZPU0764-95-06 19:10:00 Test Item Value Reference Range Interpretation Comments PTT (test code = PTT) 29.9 s 22.9-35.8 [facility]
[2022-07-31 15:34] LABS: Urine Blood Trace-intact (Negative); Urine Glucose Negative (Negative); Urine Protein 2+ (Negative)
[2022-07-31 16:08] LABS: Absolute Lymphocytes (CBC) 1.2 K/uL (0.7-4.9); Hematocrit 39.4 % (39.6-49.0); Lymphocytes % 8.3 % (15.3-44.8); MCV 96.2 fL (80-100)
--- NOTE | 2022-07-31 16:12 | RAD REPORT ---
EXAM DESCRIPTION: RAD - Chest Single View - 07/31/2022 4:01 pm CLINICAL HISTORY: fever, sob Chest pain. COMPARISON: <Comparisons> FINDINGS: Portable technique limits examination quality. Prominent interstitial lung opacities could indicate mild pulmonary edema or a viral infection. The h eart is mildly enlarged in size. No displaced fractures.
[2022-07-31 16:15] LABS: Urine Mucus Slight /HPF (None Seen)
[2022-07-31 16:16] LABS: Protime INR 1.54
[2022-07-31 16:29] LABS: Albumin 3.6 g/dL (3.4-5.0); Bilirubin Total 0.4 mg/dL (0.2-1.0); Potassium 3.9 mmol/L (3.5-5.1); Protein, Total 7.6 g/dL (6.4-8.2)
--- NOTE | 2022-07-31 18:09 | ER ---
Nurse's Notes [facility] Name: Yo Elizalde Age: 77 yrs Sex: Male : 1945 Arrival Date: 07/31/2022 Time: 15:07 Bed 4 Private MD: Diagnosis: Fever, unspecified;Acute pulmonary edema Presentation: 07/31 15:07 Chief complaint: EMS states: SENT FROM [place] FOR FEVER AND TACHYCARDIA. Coronavirus bp screen: fever, shortness of breath, Client presents with at least one sign or symptom that may indicate coronavirus-19. Standard/surgical mask placed on the client. Ebola Screen: No symptoms or risks identified at this time. Initial Sepsis Screen: Does the patient meet any 2 criteria? HR > 90 bpm. No. Patient's initial sepsis screen is negative. Does the patient have a suspected source of infection? No. Patient's initial sepsis screen is negative. Risk Assessment: Do you want to hurt yourself or someone else? Patient reports no desire to harm self or others. Onset of symptoms is unknown. Care prior to arrival: IV initiated. 18 GA, in the left antecubital area. 15:07 Method Of Arrival: EMS: [facility] bp 15:07 Acuity: MIO 3 bp Triage Assessment: 15:10 General: Appears in no apparent distress. comfortable, Behavior is calm, cooperative, bp appropriate for age. Pain: Denies pain. EENT: No deficits noted. Neuro: No deficits noted. Cardiovascular: Rhythm is sinus tachycardia. Respiratory: Reports cough that is. GI: No signs and/or symptoms were reported involving the gastrointestinal system. : No signs and/or symptoms were reported regarding the genitourinary system. Derm: No deficits noted. Musculoskeletal: No deficits noted. Historical: - Allergies: 15:21 No Known Allergies; bp - Immunization history:: Adult Immunizations up to date. - Social history:: Smoking status: Patient reports the use of cigarette tobacco products, HISTORY OF. - Family history:: not pertinent. - Hospitalizations: : No recent hospitalization is reported. Screenin:10 Abuse screen: Denies threats or abuse. Denies injuries from another. Nutritional bp screening: No deficits noted. Tuberculosis screening: No symptoms or risk factors identified. Fall Risk None identified. Assessment: 15:10 General: SEE TRIAGE NOTE. bp 16:31 Reassessment: No changes from previously documented assessment. Patient and/or family bp updated on plan of care and expected duration. Pain level reassessed. 17:38 Reassessment: No changes from previously documented assessment. Patient and/or family bp updated on plan of care and expected duration. Pain level reassessed. BNP ADDED ON. RESULTS PENDING. 18:40 Reassessment: PT D/C HOME. bp Vital Signs: 15:07 Pulse 110; Resp 24; Temp 100.3; Pulse Ox 95% ; bp 16:30 BP 152 / 75; Pulse 96; Resp 16; Temp 99.3; Pulse Ox 95% ; bp 18:40 BP 147 / 69; Pulse 87; Resp 16; Pulse Ox 96% ; bp ED Course: 15:07 Patient arrived in ED. bp 15:08 Triage completed. bp 15:10 Ravinder Malcolm MD is Attending Physician. rn 15:10 Arm band placed on. bp 15:10 Patient has correct armband on for positive identification. Bed in low position. Call bp light in reach. Side rails up X2. 15:10 Maintain EMS IV. Dressing intact. Good blood return noted. Site clean \T\ dry. Gauge \T\ bp site: 18 G R AC. 15:20 Best Jacobs, RN is Primary Nurse. bp 18:40 No provider procedures requiring assistance completed. IV discontinued, intact, bp bleeding controlled, No redness/swelling at site. Pressure dressing applied. Administered Medications: 18:18 Drug: Lasix (furosemide) 40 mg Route: IVP; Site: right antecubital; bp 18:42 Follow up: Response: No adverse reaction bp 18:18 Drug: Zithromax (azithromycin) 500 mg Route: PO; bp 18:41 Follow up: Response: No adverse reaction bp Medication: 15:10 VIS not applicable for this client. bp Outcome: 18:08 Discharge ordered by . rn 18:40 Discharged to home ambulatory. bp 18:40 Condition: stable 18:40 Discharge instructions given to patient, Instructed on discharge instructions, follow up and referral plans. medication usage, Demonstrated understanding of instructions, follow-up care, medications, Prescriptions given X 1. 18:42 Patient left the ED. bp Signatures: Ravinder Malcolm MD MD rn Peltier, Brian, RN RN bp Corrections: (The following items were deleted from the chart) 17:00 16:30 BP 152 / 75; Pulse 96bpm; Resp 16bpm; Pulse Ox 95%; bp bp
--- NOTE | 2022-07-31 18:09 | EDPHYS ---
Physician Documentation [facility] Name: Yo Elizalde Age: 77 yrs Sex: Male : 1945 Arrival Date: 07/31/2022 Time: 15:07 Bed 4 Private MD: ED Physician Ravinder Malcolm HPI: 07/31 15:55 This 77 yrs old Male presents to ER via EMS with complaints of Fever. rn 15:55 The patient reports fever, that was measured at 100.3 degrees Fahrenheit. Onset: The rn symptoms/episode began/occurred at an unknown time. Modifying factors: there are no obvious modifying factors. Associated signs and symptoms: Pertinent positives: cough, shortness of breath, Pertinent negatives: abdominal pain, altered mental status, chest pain, headache, hemoptysis, skin rash, swelling, vomiting. Severity of symptoms: At their worst the symptoms were mild in the emergency department the symptoms are unchanged. The patient has not experienced similar symptoms in the past. The patient has not recently seen a physician. Sent from [place] clinic for fever, to 100.3, patient not aware of having a fever. Reports a few weeks of cough and sob, worse with exertion, no chest pain. Denies abd pain/nausea/vomiting/diarrhea.. Historical: - Allergies: 15:21 No Known Allergies; bp - Immunization history:: Adult Immunizations up to date. - Social history:: Smoking status: Patient reports the use of cigarette tobacco products, HISTORY OF. - Family history:: not pertinent. - Hospitalizations: : No recent hospitalization is reported. ROS: 15:55 Constitutional: Negative for chills, and weight loss, Eyes: Negative for injury, pain, rn redness, and discharge, Neck: Negative for injury, pain, and swelling, Cardiovascular: Negative for chest pain, palpitations, and edema, Respiratory: Negative for wheezing, and pleuritic chest pain, Abdomen/GI: Negative for abdominal pain, nausea, vomiting, diarrhea, and constipation, Back: Negative for injury and pain, MS/Extremity: Negative for injury and deformity, Skin: Negative for injury, rash, and discoloration, Neuro: Negative for headache, weakness, numbness, tingling, and seizure. Exam: 15:55 Constitutional: This is a well developed, well nourished patient who is awake, alert, rn and in no acute distress. Head/Face: Normocephalic, atraumatic. Eyes: Periorbital areas with no swelling, redness, or edema. Cardiovascular: Tachycardic, regular. No pulse deficits. Respiratory: Mild tachypnea, no retractions, + crackles at bases. Abdomen/GI: Soft, non-tender Skin: Warm, dry MS/ Extremity: Pulses equal, no cyanosis. Neuro: Awake and alert, GCS 15 Vital Signs: 15:07 Pulse 110; Resp 24; Temp 100.3; Pulse Ox 95% ; bp 16:30 BP 152 / 75; Pulse 96; Resp 16; Temp 99.3; Pulse Ox 95% ; bp 18:40 BP 147 / 69; Pulse 87; Resp 16; Pulse Ox 96% ; bp MDM: 15:10 Patient medically screened. rn 18:05 Differential diagnosis: viral Infection, bacterial infection, URI, bronchitis, rn pneumonia pulmonary edema. Data reviewed: vital signs, nurses notes, lab test result(s), radiologic studies, plain films, and as a result, I will discharge patient. Counseling: I had a detailed discussion with the patient and/or guardian regarding: the historical points, exam findings, and any diagnostic results supporting the discharge/admit diagnosis, lab results, radiology results, the need for outpatient follow up, to return to the emergency department if symptoms worsen or persist or if there are any questions or concerns that arise at home. Response to treatment: the patient's symptoms have mildly improved after treatment, and as a result, I will discharge patient. Special discussion: I discussed with the patient/guardian in detail that at this point there is no indication for admission to the hospital. It is understood, however, that if the symptoms persist or worsen the patient needs to return immediately for re-evaluation. Based on the history and exam findings, there is no indication for further emergent testing or inpatient evaluation. I discussed with the patient/guardian the need to see the primary care provider for further evaluation of the symptoms. ED course: CXR more consistent with pulmonary edema as well as story. Given lasix here. Will dc home with abx for possible infection that could be hidden with pulmonary edema. COVID/flu/strep neg. Recommend doubling his lasix for next 3 days and f/u with pcp. Return precautions given and understood. . 07/31 15:22 Order name: Blood Culture Adult (2) rn 07/31 15:22 Order name: CBC with Diff; Complete Time: 17:19 07/31 15:22 Order name: CMP; Complete Time: 17:19 07/31 15:22 Order name: Lactate; Complete Time: 17:19 07/31 15:22 Order name: Protime (+inr); Complete Time: 17:19 07/31 15:22 Order name: Ptt, Activated; Complete Time: 17:19 07/31 15:22 Order name: Urine Culture rn 07/31 15:22 Order name: Urine Microscopic Only; Complete Time: 17:19 07/31 15:22 Order name: SARS-COV-2 RT PCR (Document "Date of Onset" if Symptomatic) 07/31 15:22 Order name: Flu; Complete Time: 17:19 07/31 15:22 Order name: Strep; Complete Time: 17:19 07/31 15:34 Order name: Urine Dipstick-Ancillary; Complete Time: 17:19 [facility] 07/31 17:22 Order name: LAB Add On 07/31 17:42 Order name: NT PRO-BNP EDIN 07/31 15:22 Order name: Chest Single View XRAY 07/31 15:22 Order name: Accucheck; Complete Time: 15:50 07/31 15:22 Order name: Cardiac monitoring; Complete Time: 15:50 07/31 15:22 Order name: EKG - Nurse/Tech; Complete Time: 16:58 07/31 15:22 Order name: IV Saline Lock - Large Bore; Complete Time: 15:50 07/31 15:22 Order name: Labs collected and sent; Complete Time: 15:50 rn 07/31 15:22 Order name: O2 Per Protocol; Complete Time: 15:50 rn 07/31 15:22 Order name: O2 Sat Monitoring; Complete Time: 15:49 rn 07/31 15:22 Order name: Urine Dipstick-Ancillary (obtain specimen); Complete Time: 15:49 07/31 16:13 Order name: RAD; Complete Time: 17:19 EDIN 07/31 18:11 Order name: Throat Culture EDIN Administered Medications: 18:18 Drug: Lasix (furosemide) 40 mg Route: IVP; Site: right antecubital; bp 18:42 Follow up: Response: No adverse reaction bp 18:18 Drug: Zithromax (azithromycin) 500 mg Route: PO; bp 18:41 Follow up: Response: No adverse reaction bp Disposition Summary: 07/31/22 18:08 Discharge Ordered Location: Home rn Problem: new rn Symptoms: have improved rn Condition: Stable rn Diagnosis - Fever, unspecified rn - Acute pulmonary edema rn Followup: rn - With: Private Physician - When: As needed - Reason: Recheck today's complaints, Re-evaluation by your physician Discharge Instructions: - Discharge Summary Sheet rn - Fever, Adult rn - Pulmonary Edema rn Forms: - Medication Reconciliation Form rn - Thank You Letter rn - Antibiotic furnace filler - Prescription Opioid Use rn Prescriptions: - Zithromax Z-Alvino 250 mg Oral Tablet - take 1 tablet by ORAL route as directed for 5 days Day 1 - take two (2) tablets rn one time. Day 2, 3, 4 , 5 take one (1) tablet once daily.; 6 tablet; Refills: 0, Product Selection Permitted Signatures: Dispatcher [employer] Ravinder Anderson MD MD rn Peltier, Brian, RN RN bp
[2022-07-31] MEDS ORDERED: FUROSEMIDE 40 MG/4 ML VIAL ONE (18:19)
[2022-07-31] MEDS ORDERED: AZITHROMYCIN 250 MG TAB ONE (18:19)
[2022-08-02 08:41] VITALS: TEMP 99.3
[2022-08-02 08:43] VITALS: BP 147/69; O2SAT 96
--- NOTE | 2022-08-04 17:31 | EKG ---
Test Date: 2022-07-31 Test Time: 16:51:27 Control Room Operator: BP MEASUREMENT RESULTS: Intervals: Rate: 104 ID: QRSD: [id number] QT: 320 QTc: 420 [place]: P: ID: QRS: [id number] T: 112 INTERPRETIVE STATEMENTS: Atrial fibrillation with rapid ventricular response Left axis deviation Incomplete left bundle branch block ST & T wave abnormality, consider lateral ischemia Abnormal ECG No previous ECG available for comparison Electronically Signed On 08-04-22 17:28:38 CDT by Jasson Miranda
== END 2022-07-31 18:42 | disposition home or self-care (01) ==
LOC: ER 14:48
DX: R50.9 Fever, unspecified (principal); J81.0 Acute pulmonary edema; Z20.822 Contact with and (suspected) exposure to COVID-19
CPT/HCPCS: 87040 ×2; 87070; 87088; 85025; 87086; 36415; 87205; 85610; 87081; 83605; 85730; 80053; 83880; 87804 ×2; 71045; 96374; 99284; U0003; J1940; 81003; 81015; 93005

== ENCOUNTER 2023-10-05 13:18 | Emergency (ER) | payer OTHER ==
--- OUTSIDE RECORDS SUMMARY | 2023-10-05 13:30 | XMS REPORT | Continuity of Care Document ---
:1945 Author Organization [facility] t Address [address] [place] [address] [place] [id number] Care Team Providers Name Role Phone KARTHIKEYAN LÓPEZ Attending Clinician Unavailable Richelle Newell Attending Clinician Richelle Newell Admitting Clinician Payers Payer Name Policy Type Policy Number Effective Date Expiration Date Farhat [facility] [id number] 2020 MEDICARE 00:00:00 Problems Condition Condition Condition Status Onset Resolution Last Treating Co mments Source Name Details Category Date Date Treatment Clinician Date Chronic Chronic Disease [facility] insufficie insufficie 00:00: ncy ncy 00 Bilateral Bilateral Disease Active [facility] carotid carotid 06-09 [facility] artery artery 00:00: stenosis stenosis 00 PAOD PAOD Disease Active [facility] (periphera (periphera 04-28 He alth l arterial l arterial 00:00: occlusive occlusive 00 disease) disease) CVA CVA Diagnosis Active 2018-02-21 Mem oria Active 01-18 21:59:00 l 01/18/2018 00:00: Jean Paul vaughn [address] LF [id number] LF [id number] Diagnosis Active 2018-01-18 Memoria Active 01-18 15:32:00 l 01/18/2018 00:00: Jean Paul vaughn [address] Alcohol Alcohol Problem 2018-04-29 Ct moria dependence dependence 12:35:12 l Hermann uncomplica uncomplica mary alice mary alice 04/29/2018 [facility] Essential Essential Problem 2018-04-29 Memoria (primary) (primary) 12:35:12 l hypertensi hypertensi Antonio hollis on on 04/29/2018 [facility] Coma Coma Problem 2018-04-29 Memor ia scale, scale, 12:35:12 l eyes open, eyes open, He rmann spontaneou spontaneou s, at s, at arrival to arrival to emergency emergency department department 8 [facility] Coma Coma Problem 2018-04-29 Memor ia scale, scale, 12:35:12 l best motor best motor He rmann response, response, localizes localizes pain, at pain, at arrival to arrival to emergency emergency department department 8 [facility] NIHSS NIHSS Problem 2018-04-29 Memor ia score 0 score 0 12:35:12 l 04/29/2018 Jean Paul vaughn [facility] Nicotine Nicotine Problem 2018-04-29 Memoria dependence dependence 12:35:12 l , Bob cigarettes cigarettes , , uncomplica uncomplica mary alice mary alice 04/29/2018 [facility] 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-29 Memoria and and 12:35:12 l stenosis stenosis Jean Paul vaughn of left of left carotid carotid artery artery 04/29/2018 [facility] Status Status Problem 2018-04-29 Irwin cayla post post 12:35:12 l administra administra He rmann tion of tion of tPA (rtPA) tPA (rtPA) in a in a different different facility facility within the within the last 24 last 24 hours hours prior to prior to admission admission to current to current facility facility 04/29/2018 [facility] CEREBRAL CEREBRAL Diagnosis Active 2018-02-21 Memoria INFARCTION INFARCTION 21:59:00 l , Bob UNSPECIFIE UNSPECIFIE D D Active [facility] Coma Coma Problem 2018-04-29 Memor ia scale, scale, 12:35:12 l best best Bob verbal verbal response, response, none, at none, at arrival to arrival to emergency emergency department department 04/29/2018 [facility] Hemiplegia Problem 2018-04-29 M emoria , Hemiplegia 12:35:12 l unspecJean Paul clay d unspecifie affecting d right affecting dominant right side dominant side 04/29/2018 [facility] Hypertensi Hypertens Problem 2018-04-29 Memoria ve emmanuelle 12:35:12 l emergency emergency Herm abundio 04/29/2018 [facility] Paroxysmal Paroxysma Problem 2018-04-29 Memgarrett atrial l atrial 12:35:12 l fibrillati fibrillati He rmann on on 04/29/2018 [facility] Aphasia Aphasia Problem 2018-04-29 Me moria 04/29/2018 12:35:12 l [facility] Hyperlipid Hyperlipi Problem 2018-04-29 Memoria alisha king, 12:35:12 l unspecifie unspecifie He rmann d d 04/29/2018 [facility] History of Past Illness Condition Condition Condition Status Onset Resolution Last Treating Co mments Source Name Details Category Date Date Treatment Clinician Date Cerebral Cerebral Problem 2017-2018-04-29 2018-04-29 Memoria infarction infarction 4-17 12:35:12 12:35:12 l due to due to 03:14: [place] embolism embolism 17 of left of left middle middle cerebral cerebral artery artery 02/22/2018 8 [facility] Allergies, Adverse Reactions, Alerts This patient has no known allergies or adverse reactions. Social History Social Habit Start Date Stop Date Quantity Comments Source Tobacco use and 2021-06-10 2021-06-10 [facility] used [facility] exposure 00:00:00 00:00:00 Sex [birth year] [facility] 00[facility]00:00 00:00:00 Smoking Status Start Date Stop Date Source Former smoker 2021-06-10 00:00:00 2021-06-10 00:00:00 [facility] Social History 2018-01-18 21:57:45 [facility] Medications Ordered Filled Start Stop Current Ordering Indication Dosage Frequency Signature Comments Components Source Medication Medication Date Date Medication? Clinician (SIG) Name Name Apixaban Yes Take by [facility] (ELIQUIS 6-29 mouth. Health PO) 12:55: 29 Apixaban Yes Take by [facility] (ELIQUIS 6-22 mouth. Health PO) 16:25: 01 Lisinopril No Notes: Memor ia 3-16 (Same as: l 14:53: Prinivil, Bob 00 Zestril) Lisinopril No Notes: Memor ia 3-16 (Same as: l 14:53: Prinivil, Bob 00 Zestril) NIFEdipine No Notes: Memor ia 60 mg oral 3-16 (Same as: l tablet, 14:00: Adalat CC, Herm abundio extended 00 Procardia release XL) Give on empty stomach. Take 1 hour before or 2 hours after meal; "Avoid grapefruit and grapefruit juice". Do not crush Eliquis 2018-0 No 5 mg, 1 Memoria 3-16 tab, l 14:00: Route: PO, [place] 00 Drug form: TAB, Q12H, Dosing Weight 83.2, kg, Start date: 01/21/18 9:00:00 CDT, Duration: 30 day, Stop date: 02/19/18 21:00:00 CDT NIFEdipine No Notes: Memor ia 60 mg oral 3-16 (Same as: l tablet, 14:00: Adalat CC, Herm abundio extended 00 Procardia release XL) Give on empty stomach. Take 1 hour before or 2 hours after meal; "Avoid grapefruit and grapefruit juice". Do not crush Eliquis 2018-0 No 5 mg, 1 Memoria 3-16 tab, l 14:00: Route: PO, [place] Drug form: TAB, Q12H, Dosing Weight 83.2, kg, Start date: 01/21/18 9:00:00 CDT, Duration: 30 day, Stop date: 02/19/18 21:00:00 CDT Lipitor No Notes: Memoria 3-16 (Same as: l 02:00: Lipitor) Lipitor 0 No Notes: Memoria 3-16 (Same as: l 02:00: Lipitor) apixaban 5 2018-0 Yes 5 mg, PO, Me moria MG Oral 3-15 Q12H, # 60 l Tablet 21:50: tab, 3 Bob [Eliquis] 00 Refill(s) apixaban 5 2018-0 Yes 5 mg, PO, Me moria MG Oral 3-15 Q12H, # 60 l Tablet 21:50: tab, 3 Bob [Eliquis] 00 Refill(s) NIFEdipine 2017-0 Yes 60 mg, PO, M emoria 60 mg oral 3-15 Daily, .., l tablet, 21:46: # 30 tab, Chrissy nn extended 00 3 release Refill(s) lisinopril 2018-0 Yes 20 mg = 1 Me moria 20 mg oral 3-15 tab, PO, l tablet 21:46: Daily, # Bob 00 30 tab, 3 Refill(s) atorvastati 2018-0 Yes 40 mg = 1 M emoria n 40 mg 3-15 tab, PO, l oral tablet 21:46: Bedtime, # Bob 00 30 tab, 3 Refill(s) NIFEdipine 2018-0 Yes 60 mg, PO, M emoria 60 mg oral 3-15 Daily, .., l tablet, 21:46: # 30 tab, Chrissy nn extended 00 3 release Refill(s) lisinopril 2018-0 Yes 20 mg = 1 Me moria 20 mg oral 3-15 tab, PO, l tablet 21:46: Daily, # Bob 00 30 tab, 3 Refill(s) atorvastati 2018-0 Yes 40 mg = 1 M emoria n 40 mg 3-15 tab, PO, l oral tablet 21:46: Bedtime, # Bob 00 30 tab, 3 Refill(s) NIFEdipine 2017-0 No Notes: Memor ia 30 mg oral 3-15 (Same as: l tablet, 21:31: Adalat CC, Herm abundio extended 00 Procardia release XL) Give on empty stomach. Take 1 hour before or 2 hours after meal; "Avoid grapefruit and grapefruit juice". Do not crush NIFEdipine 2017-0 No Notes: Memor ia 30 mg oral 3-15 (Same as: l tablet, 21:31: Adalat CC, Herm abundio extended 00 Procardia release XL) Give on empty stomach. Take 1 hour before or 2 hours after meal; "Avoid grapefruit and grapefruit juice". Do not crush Metoprolol 2018-0 No 1 mg, Memori a 3-15 Route: l 15:46: IVP, Bob 00 Q5Min, Dosing Weight 83.2, [...] times, Stop date: Limited # of times Metoprolol 2018-0 No 1 mg, Memori a 3-15 Route: l 15:46: IVP, [place] 00 Q5Min, Dosing Weight 83.2, kg, PRN [...] Irwin cayla 3-15 Route: l 15:40: IVP, [place] 00 Q20Min, Dosing Weight 83.2, kg, PRN Elevated BP, Start date: 01/20/18 10:40:00 CDT, Duration: 2 doses or times, Stop date: Limited # of times Naloxone 2018-0 No 0.4 mg, Memori a 3-15 Route: l 15:40: IVP, [place] 00 Q2MIN, Dosing Weight 83.2, kg, PRN Narcotic Reversal, Start date: 01/20/18 10:40:00 CDT, Duration: 8 doses or times, Stop date: Limited # of times Flumazenil 2018-0 No 0.2 mg, Irwin cayla 3-15 Route: l 15:40: IVP, PRN, [place] 00 Dosing Weight 83.2, kg, PRN Benzodiaze pine Reversal, Initial dose, Start date: 01/20/18 10:40:00 CDT, Duration: 30 day, Stop date: 02/19/18 10:39:00 CDT Ondansetron 2018-0 No 4 mg, Memor ia 3-15 Route: l 15:40: IVP, ONCE, [place] 00 Dosing Weight 83.2, kg, PRN Nausea & Vomiting, Start date: 01/20/18 10:40:00 CDT Labetalol 2018-0 No 10 mg, Memori a 3-15 Route: l 15:40: IVP, [place] 00 Q5Min, Dosing Weight 83.2, kg, PRN [...] Irwin cayla 3-15 Route: l 15:40: IVP, [place] 00 Q20Min, Dosing Weight 83.2, kg, PRN Elevated BP, Start date: 01/20/18 10:40:00 CDT, Duration: 2 doses or times, Stop date: Limited # of times Naloxone 2018-0 No 0.4 mg, Memori a 3-15 Route: l 15:40: IVP, [place] 00 Q2MIN, Dosing Weight 83.2, kg, PRN [...] day, Stop date: 02/19/18 10:39:00 CDT Omnipaque 2018-0 No 150 ml, Memor ia 350 3-15 Route: l 14:41: INTRAARTER Bob 00 IAL, Dosing Weight 83.2, kg, ONCE, Start date: 01/20/18 9:41:00 CDT, Stop date: 01/20/18 9:41:00 CDT Omnipaque 2018-0 No 150 ml, Memor ia 350 3-15 Route: l 14:41: INTRAARTER Bob 00 IAL, Dosing Weight 83.2, kg, ONCE, Start date: 01/20/18 9:41:00 CDT, Stop date: 01/20/18 9:41:00 CDT Aspirin 325 No Notes: Irwin cayla MG Enteric 3-15 Take with l Coated 14:00: food. [place] Tablet 00 Aspirin 325 2017-0 No Notes: Irwin cayla MG Enteric 3-15 Take with l Coated 14:00: food. Bob Tablet 00 NIFEdipine No Notes: Memor ia 30 mg oral 3-15 (Same as: l tablet, 13:20: Adalat CC, Herm abundio extended 00 Procardia release XL) Give on empty stomach. Take 1 hour before or 2 hours after meal; "Avoid grapefruit and grapefruit juice". Do not crush NIFEdipine No Notes: Memor ia 30 mg oral 3-15 (Same as: l tablet, 13:20: Adalat CC, Herm abundio extended 00 Procardia release XL) Give on empty stomach. Take 1 hour before or 2 hours after meal; "Avoid grapefruit and grapefruit juice". Do not crush Lisinopril No Notes: Memor ia 3-15 (Same as: l 11:49: Prinivil, Bob 00 Zestril) Lisinopril No Notes: Memor ia 3-15 (Same as: l 11:49: Prinivil, [place] 00 Zestril) heparin No Notes: Memoria sodium, 3-14 porcine l porcine 21:00: heparin [place] 2500 UNT/ML 00 Injectable Solution heparin No Notes: Memoria sodium, 3-14 porcine l porcine 21:00: heparin [place] 2500 UNT/ML 00 Injectable Solution Dextrose No 25 gm, 50 Irwin cayla 50% Syringe 3-14 mL, Route: l 16:14: IVP, Drug [place] 00 Form: INJ, Dosing Weight 83.2, kg, PRN, PRN Abnormal Lab Result, Start date: 01/19/18 11:14:00 CDT, Duration: 30 day, Stop date: 02/18/18 11:13:00 CDT Regular No 60 units) Irwin cayla Insulin, 01-19 WASTE: F/P l Human 100 16:14: - Black; E He rmann UNT/ML 00 - Injectable Municipal Solution Trash Bin Stable for 28 days at room temperatur e Expires in days from ____Date Dextrose No 25 gm, 50 Irwin cayla 50% Syringe 3-14 mL, Route: l 16:14: IVP, Drug Bob 00 Form: INJ, Dosing Weight 83.2, kg, PRN, PRN Abnormal Lab Result, Start date: 01/19/18 11:14:00 CDT, Duration: 30 day, Stop date: 02/18/18 11:13:00 CDT Regular No 60 units) Irwin cayla Insulin, 01-19 WASTE: F/P l Human 100 16:14: - Black; E He rmann UNT/ML 00 - Injectable Municipal Solution Trash Bin Stable for 28 days at room temperatur e Expires in days from ____Date Insulin 0 No 8 unit, Memoria regular 01-19 Route: l 16:11: SUB-Q, [place] 00 TID-Before Meals, Dosing Weight 83.2, kg, PRN Blood Glucose Results, Start date: 01/19/18 11:11:00 CDT, Duration: 30 day, Stop date: 02/18/18 11:10:00 CDT Glucagon 2018-0 No 1 mg, Memoria 3-14 Route: IM, l 16:11: PRN, [place] 00 Dosing Weight 83.2, kg, PRN Blood Glucose Results, Start date: 01/19/18 11:11:00 CDT, Duration: 30 day, Stop date: 02/18/18 11:10:00 CDT Dextrose 2018-0 No 25 mL, Memoria 50% Syringe 3-14 Route: l 16:11: IVP, [place] 00 Dosing Weight 83.2, kg, PRN, PRN Blood Glucose Results, Start date: 01/19/18 11:11:00 CDT, Duration: 30 day, Stop date: 02/18/18 11:10:00 CDT Regular 2018-0 No 3 unit, Memoria Insulin, 3-14 Route: l Human 100 16:11: SUB-Q, Jean Paul n UNT/ML 00 PRN, Injectable Dosing Solution Weight 83.2, kg, PRN Abnormal Lab Result, Start date: 01/19/18 11:11:00 CDT, Duration: 30 day, Stop date: 02/18/18 11:10:00 CDT Insulin 2018-0 No 8 unit, Memoria regular 3-14 Route: l 16:11: SUB-Q, Bob 00 TID-Before Meals, Dosing Weight 83.2, kg, PRN Blood Glucose Results, Start date: 01/19/18 11:11:00 CDT, Duration: 30 day, Stop date: 02/18/18 11:10:00 CDT Glucagon 2018-0 No 1 mg, Memoria 3-14 Route: IM, l 16:11: PRN, [place] 00 Dosing Weight 83.2, kg, PRN Blood Glucose Results, Start date: 01/19/18 11:11:00 CDT, Duration: 30 day, Stop date: 02/18/18 11:10:00 CDT Dextrose 2018-0 No 25 mL, Memoria 50% Syringe 3-14 Route: l 16:11: IVP, Bob 00 Dosing Weight 83.2, kg, PRN, PRN Blood Glucose Results, Start date: 01/19/18 11:11:00 CDT, Duration: 30 day, Stop date: 02/18/18 11:10:00 CDT Regular 2018-0 No 3 unit, Memoria Insulin, 3-14 Route: l Human 100 16:11: SUB-Q, Jean Paul n UNT/ML 00 PRN, Injectable Dosing Solution Weight 83.2, kg, PRN Abnormal Lab Result, Start date: 01/19/18 11:11:00 CDT, Duration: 30 day, Stop date: 02/18/18 11:10:00 CDT metoprolol 2017-0 No Notes: Memor ia tartrate 3-14 (Same as: l 16:07: Lopressor) 12.5 mg=1/2 X 25 mg TAB metoprolol No Notes: Memor ia tartrate 3-14 (Same as: l 16:07: Lopressor) 12.5 mg=1/2 X 25 mg TAB Versed No 1 mg, Memoria 3-14 Route: l 16:00: IVP, ONCE, Dosing Weight 83.2, kg, Start date: 01/19/18 11:00:00 CDT, Stop date: 01/19/18 11:00:00 CDT Versed 0 No 1 mg, Memoria 3-14 Route: l 16:00: IVP, ONCE, Dosing Weight 83.2, kg, Start date: 01/19/18 11:00:00 CDT, Stop date: 01/19/18 11:00:00 CDT Versed 0 No Notes: Memoria 3-14 (Same as: l 15:43: Versed) MEDICATION WASTE Product Size: 2 mg Product Wasted: ___ mg Versed No Notes: Memoria 3-14 (Same as: l 15:43: Versed) MEDICATION WASTE Product Size: 2 mg Product Wasted: ___ mg Hydralazine No Notes: Irwin cayla 3-14 (Same as: l 15:13: Apresoline ) Push over 5 minutes Hydralazine No Notes: Irwin cayla 3-14 (Same as: l 15:13: Apresoline ) Push over 5 minutes Plavix No Notes: Memoria 3-14 (Same As: l 14:14: Plavix) Aspirin No Notes: Do Memor ia 3-14 not crush l 14:14: or chew. Bob 00 (Same As: Ecotrin) Plavix No Notes: Memoria 3-14 (Same As: l 14:14: Plavix) Aspirin No Notes: Do Memor ia 3-14 not crush l 14:14: or chew. [place] 00 (Same As: Ecotrin) sennosides, No Notes: Irwin cayla INTERMEDIATE 3-14 (Same as: l 14:00: Senokot) Docusate No Notes: Memoria 3-14 (Same as: l 14:00: Colace) (Do Not Crush) sennosides, No Notes: Irwin cayla INTERMEDIATE 3-14 (Same as: l 14:00: Senokot) [place] 00 Docusate No Notes: Memoria 3-14 (Same as: l 14:00: Colace) (Do Not Crush) Sodium No 1,000 mL, Memori a Chloride 3-14 Rate: 50 l 0.9% IV 10:22: ml/hr, Bob 1,000 mL 00 Infuse over: 20 hr, Route: IV, Dosing Weight 85.4 kg, Total Volume: 1,000, Start date: 01/19/18 5:22:00 CDT, Duration: 30 day, Stop date: 02/18/18 5:21:00 CDT, 2.02, m2 Sodium No 1,000 mL, Memori a Chloride 3-14 Rate: 50 l 0.9% IV 10:22: ml/hr, Bob 1,000 mL 00 Infuse over: 20 hr, Route: IV, Dosing Weight 85.4 kg, Total Volume: 1,000, Start date: 01/19/18 5:22:00 CDT, Duration: 30 day, Stop date: 02/18/18 5:21:00 CDT, 2.02, m2 Calcium No Notes: Memoria Carbonate 3-14 (Same As: l 500 MG 05:04: Tums) [place] Chewable 00 Calcium Tablet Carbonate 500 mg = 200 mg elemental calcium Dose = mg calcium carbonate ( mg elemental calcium) potassium No Notes: Memori a phosphate 3-14 (Same as: l 05:04: K [place] 00 Phosphate. ) 1 mMol phoshate has [...] Chloride 3-14 (Same as: l 05:04: Potassium [place] 00 Chloride) Magnesium No Notes: Memori a Sulfate 3-14 WASTE: F/P l 05:04: - Sink; E Bob 00 - Municipal Trash Bin Calcium No Notes: Memoria Gluconate 3-14 WASTE: F/P l 05:04: - Sink; E [place] 00 - Municipal Trash Bin Magnesium No Notes: Memori a Oxide 3-14 (Same as: l 05:04: Mag-Ox Bob 00 400) Magnesium oxide 685oc=626e g elemental magnesium Dose=____m g magnesium oxide (___mg elemental magnesium) potassium No Notes: Memori a phosphate-s 3-14 (Same as: l odium 05:04: Phos-NaK) Bob phosphate 00 Each 1.5 250 mg-280 gm pkt has mg-160 mg 250mg oral powder phosphorou for s. Mix reconstitut w/2.5oz ion water and stir. Calcium No Notes: Memoria Carbonate 3-14 (Same As: l 500 MG 05:04: Tums) [place] Chewable 00 Calcium Tablet Carbonate 500 mg = 200 mg elemental calcium Dose = mg calcium carbonate ( mg elemental calcium) potassium No Notes: Memori a phosphate 3-14 (Same as: l 05:04: K Bob 00 Phosphate. ) 1 mMol phoshate has 1.47 mEq potassium Infuse over 4 hours sodium No 45 mmol, Memoria phosphate 3-14 15 mL, l 05:04: Route: [place] 00 IVPB, PRN, Dosing Weight 85.4, kg, PRN Abnormal Lab Result, Start date: 01/19/18 0:04:00 CDT, Duration: 30 day, Stop date: 02/18/18 0:03:00 CDT, FOR ICU USE ONLY Potassium No Notes: Memori a Chloride 3-14 (Same as: l 05:04: Potassium Chloride) Magnesium No Notes: Memori a Sulfate 3-14 WASTE: F/P l 05:04: - Sink; E [place] 00 - Municipal Trash Bin Calcium No Notes: Memoria Gluconate 3-14 WASTE: F/P l 05:04: - Sink; E Bob - Municipal Trash Bin Magnesium No Notes: Memori a Oxide 3-14 (Same as: l 05:04: Mag-Ox [place] 00 400) Magnesium oxide 739mp=588b g elemental magnesium Dose=____m g magnesium oxide (___mg elemental magnesium) potassium No Notes: Memori a phosphate-s 3-14 (Same as: l odium 05:04: Phos-NaK) [place] phosphate 00 Each 1.5 250 mg-280 gm pkt has mg-160 mg 250mg oral powder phosphorou for s. Mix reconstitut w/2.5oz ion water and stir. Saline No Notes: Memoria Flush 0.9% 3-14 Same as: l 02:00: BD Bob Posiflush Sterile atorvastati No Notes: Irwin cayla n 3-14 Same as l 02:00: Lipitor [place] Saline No Notes: Memoria Flush 0.9% 3-14 Same as: l 02:00: BD [place] 00 Posiflush Sterile atorvastati No Notes: Irwin cayla n 3-14 Same as l 02:00: Lipitor Bob Plavix No Notes: ( Memoria 3-13 Same as: l 22:37: Plavix) Plavix No Notes: ( Memoria 3-13 Same as: l 22:37: Plavix) Aspirin No Notes: (Do Irwin cayla 3-13 Not Crush) l 22:36: Do not [place] 00 crush or chew. Aspirin No Notes: (Do Irwin cayla 3-13 Not Crush) l 22:36: Do not [place] 00 crush or chew. Saline No Notes: Memoria Flush 0.9% 3-13 (Same as: l 21:33: BD Bob Posiflush) Labetalol No 105 mmHg, Me moria 3-13 Start l 21:33: date: 01/18/18 16:33:00 CDT, Duration: 30 day, Stop date: 02/17/18 16:32:00 CDT Nicardipine 0 No 20 mg, 200 Memoria 3-13 mL, Rate: l 21:33: Titrate, Start Dose: 5 mg/hr, Titration: 2.5 mg/hour every 15 minutes, Goal(s): SBP 140-180 mmHg, Max Dose: 15 mg/hr, Route: IV, Dosing Weight 85 kg, Total Volume: 200, Start date: 01/18/18 16:33:00 CDT, Duration: 30 day, Stop delmis... Saline No Notes: Memoria Flush 0.9% 3-13 (Same as: l 21:33: BD Bob 00 Posiflush) Labetalol No 105 mmHg, Me moria 3-13 Start l 21:33: date: 01/18/18 16:33:00 CDT, Duration: 30 day, Stop date: 02/17/18 16:32:00 CDT Nicardipine 2017-0 No 20 mg, 200 Memoria 3-13 mL, Rate: l 21:33: Titrate, Bob 00 Start Dose: 5 mg/hr, Titration: 2.5 mg/hour every 15 minutes, Goal(s): SBP 140-180 mmHg, Max Dose: 15 mg/hr, Route: IV, Dosing Weight 85 kg, Total Volume: 200, Start date: 01/18/18 16:33:00 CDT, Duration: 30 day, Stop delmis... Cardene 40 No Notes: Memor ia mg in NS 3-13 Same as: l 200 mL 20:39: Charity Rojas (Titrate.) 00 Concentrat IV 40 mg ion: (0.2 mg /1 ml ) Cardene 40 No Notes: Memor ia mg in NS 3-13 Same as: l 200 mL 20:39: Charity Rojas (Titrate.) 00 Concentrat IV 40 mg ion: (0.2 mg /1 ml ) Labetalol No 10 mg, Memori a 3- Route: IV, l 20:08: ONCE, Bob 00 Dosing Weight 85, kg, Start date: 01/18/18 15:08:00 CDT, Stop date: 01/18/18 15:08:00 CDT Labetalol No 10 mg, Memori a 3 Route: IV, l 20:08: ONCE, [place] 00 Dosing Weight 85, kg, Start date: 01/18/18 15:08:00 CDT, Stop date: 01/18/18 15:08:00 CDT Saline No Notes: Memoria Flush 0.9% 3-13 (Same as: l 19:36: BD Bob Posiflush) Saline No Notes: Memoria Flush 0.9% 3-13 (Same as: l 19:36: BD Bob Posiflush) Alteplase No 68.85 mg, Mem oria 313 Route: IV, l 19:35: ONCE, kg, [place] 00 Priority: STAT, Start date: 01/18/18 14:35:00 CDT, Stop date: 01/18/18 14:35:00 CDT Sodium No 50 mL, Memoria Chloride 3 Rate: 75 l 0.9% IV 50 19:35: ml/hr, Chrissy nn mL 00 Infuse over: 0.7 hr, Route: IV, Dosing Weight 85.4 kg, Total Volume: 50, Priority: STAT, Start date: 01/18/18 14:35:00 CDT, Stop date: 02/17/18 14:34:00 CDT Alteplase 2018-0 No 68.85 mg, Mem oria 3-13 Route: IV, l 19:35: ONCE, kg, Bob 00 Priority: STAT, Start date: 01/18/18 14:35:00 CDT, Stop date: 01/18/18 14:35:00 CDT Sodium 2018-0 No 50 mL, Memoria Chloride 3- Rate: 75 l 0.9% IV 50 19:35: ml/hr, Chrissy nn mL 00 Infuse over: 0.7 hr, Route: IV, Dosing Weight 85.4 kg, Total Volume: 50, Priority: STAT, Start date: 01/18/18 14:35:00 CDT, Stop date: 02/17/18 14:34:00 CDT iodixanol 2018-0 No 100 mL, Memor ia 3- Route: l 19:15: IVP, Drug [place] Form: SOLN, kg, ONCALL, STAT, Start date: 01/18/18 14:15:00 CDT, Duration: 1 doses or times, Dose = 2.2ml/kg, Max dose = 100ml -- "To be infused by Radiology Staff ONLY" iodixanol 2017-0 No 100 mL, Memor ia 3- Route: l 19:15: IVP, Drug [place] Form: SOLN, kg, ONCALL, STAT, Start date: 01/18/18 14:15:00 CDT, Duration: 1 doses or times, Dose = 2.2ml/kg, Max dose = 100ml -- "To be infused by Radiology Staff ONLY" Saline No Notes: Memoria Flush 0.9% 3-13 (Same as: l 19:13: BD Bob 00 Posiflush) Saline No Notes: Memoria Flush 0.9% 3-13 (Same as: l 19:13: BD [place] 00 Posiflush) Vital Signs Vital Name Observation Time Observation Value Comments Source Respitory Rate 2018-01-21 14:00:00 Ángel Keller Systolic (mm Hg) 2018-01-21 14:00:00 Irwin Rojas Diastolic (mm Hg) 2018-01-21 14:00:00 Mem zoe Rojas Respitory Rate 2018-01-21 13:00:00 Memori al [place] Systolic (mm Hg) 2018-01-21 13:00:00 Irwin rial [place] Diastolic (mm Hg) 2018-01-21 13:00:00 Mem orial [place] Temperature Oral (F) 2018-01-21 12:10:00 97.7 F [facility] Bob Respitory Rate 2018-01-21 10:20:00 Memori al Bob Systolic (mm Hg) 2018-01-21 09:22:00 Irwin rial [place] Diastolic (mm Hg) 2018-01-21 09:22:00 Mem orial [place] Temperature Oral (F) 2018-01-21 09:22:00 100.5 F [facility] [place] Temperature Oral (F) 2018-01-21 04:59:00 99.9 F [facility] Bob Heart Rate 2018-01-19 16:59:00 [facility] Bob Heart Rate 2018-01-19 16:43:00 [facility] Bob Heart Rate 2018-01-19 16:28:00 [facility] Bob Weight 2018-01-19 11:08:00 [facility] [place] BMI Calculated 2018-01-18 21:35:00 Memori al Bob Weight 2018-01-18 21:35:00 [facility] [place] Height 2018-01-18 21:35:00 167.64 cm [facility] Bob Weight 2018-01-18 19:57:00 [facility] Bob Height 2018-01-18 19:57:00 170.18 cm [facility] [place] BMI Calculated 2018-01-18 19:57:00 Memori al [place] Procedures Procedure Date / Time Performing Clinician Source Performed Selective catheter 2018-01-20 13:56:00 [facility] [place] placement, vertebral artery, unilateral, with angiography of the ipsilateral vertebral circulation and all associated radiological supervision and interpretation, includes angiography of the cervicocerebral arch, when performed Carpal tunnel release [facility] ermann bilateral Knee replacement right [facility] [place] Encounters Start End Encounter Admission Attending Care Care Encounter Source Date/Time Date/Time Type Type Clinicians Facility Department ID 2022-10-26 Outpatient [facility] [id number] [place] 14:09:36 [id number] [facility] 2021-05-06 Outpatient [facility] [id number] [place] 14:17:19 [facility] 2021-05-06 Outpatient [facility] [id number] [place] 14:16:24 Health 2021-05-06 Outpatient [facility] [id number] [place] 14:11:46 [facility] 2021-03-28 Outpatient [facility] [id number] [place] 10:47:13 [facility] 2021-06-10 2021-06-10 Office ZINA López [facility] [id number] [place] 10:44:11 12:00:52 Visit [facility] [id number] [place] [address] [id number] 2021-04-29 2021-04-[address] [facility] [id number] [place] 08:09:44 10:47:59 Visit [facility] [id number] [place] [address] [id number] 2018-01-18 2018-01-21 Inpatient [facility] [id number] [place] 19:02:00 17:40:[address] 2018-01-18 2018-01-21 Inpatient [facility] [id number] [place] 19:02:00 17:40:[address] 2018-01-18 2018-01-21 Outpatient [facility] [id number] 14:02:00 12:40:00 Aminakathleen Hussein Results Test Description Test Time Test Comments Results Result Comments Source HEMATOLOGY 2018-01-21 06:13:00 Test Item Value Reference Range Interpretation Comme nts MCH (test code = MCH) 36.0 pg 27.0-31.0 [facility]FhhplacJKPJNCNOHK5088-88-57 06:13:00 Test Item Value Reference Range Interpretation Comments Hgb (test code = Hgb) 12.1 14.0-18.0 [facility] LancasterKnzfjscRYTFFDTGUV5348-95-66 06:13:00 Test Item Value Reference Range Interpretation Comments WBC (test code = WBC) 9.8 3.7-10.4 [facility] LancasterMfcsjntUDAJBUYSUC7700-66-41 06:13:00 Test Item Value Reference Range Interpretation Comments Platelet (test code = Platelet) 175 133-450 [facility] LancasterJyqintvHRLVCELZNR0456-22-64 06:13:00 Test Item Value Reference Range Interpretation Comments MPV (test code = MPV) 7.9 7.4-10.[address] [facility] YTKWEUQ5227-25-02 06:13:00 Test Item Value Reference Range Interpretation Comments Ca Norm WB (test code = Ca Norm WB) 1.12 1.05-1.[address] [facility] [id number] 06:13:00 Test Item Value Reference Range Interpretation Comments Ca Ion WB (test code = Ca Ion WB) 1.11 1.05-1.25 [facility]2018-03-16 06:13:00 Test Item Value Reference Range Interpretation Comments Magnesium Lvl (test code = Magnesium 1.8 1.8-2.4 Lvl) [facility]2018-03-16 06:13:00 Test Item Value Reference Range Interpretation Comments Phosphorus (test code = Phosphorus) 3.7 2.5-4.5 [facility]2018-03-16 06:13:00 Test Item Value Reference Range Interpretation Comments eGFR (test code = eGFR) 112 [facility]2018-03-16 06:13:00 Test Item Value Reference Range Interpretation Comments Potassium Lvl (test code = Potassium 3.8 3.5-5.1 Lvl) [facility]2018-03-16 06:13:00 Test Item Value Reference Range Interpretation Comments Chloride Lvl (test code = Chloride Lvl) 108 95-109 [facility]2018-03-16 06:13:00 Test Item Value Reference Range Interpretation Comments Calcium Lvl (test code = Calcium Lvl) 8.7 8.5-10.5 [facility]2018-03-16 06:13:00 Test Item Value Reference Range Interpretation Comments CO2 (test code = CO2) 22 24-32 [facility]2018-03-16 06:13:00 Test Item Value Reference Range Interpretation Comments Creatinine Lvl (test code = Creatinine 0.46 0.50-1.40 Lvl) [facility]2018-03-16 06:13:00 Test Item Value Reference Range Interpretation Comments Glucose Lvl (test code = Glucose Lvl) 86 70-99 [facility]2018-03-16 06:13:00 Test Item Value Reference Range Interpretation Comments BUN (test code = BUN) 9 7-22 [facility]2018-03-16 06:13:00 Test Item Value Reference Range Interpretation Comments Sodium Lvl (test code = Sodium Lvl) 141 135-145 [facility]2018-03-16 06:13:00 Test Item Value Reference Range Interpretation Comments AGAP (test code = AGAP) 14.8 10.0-20.0 [facility] LancasterSwqgvfiOEWDZNNNCK6395-73-73 06:13:00 Test Item Value Reference Range Interpretation Comments Lymphocytes (test code = Lymphocytes) 18.8 20.0-40.0 [facility] LancasterHnwyqrjJIBKPUYVLT9484-70-41 06:13:00 Test Item Value Reference Range Interpretation Comments Eosinophils # (test code 0.2 See_Comment [A utomated message] The = Eosinophils #) system whic h generated this result tra nsmitted reference range : <=0.5. The reference r melody was not used to int erpret this result as normal/abnormal . [facility] LancasterXfijvbwSBDWHCNWXN2919-19-46 06:13:00 Test Item Value Reference Range Interpretation Comments Monocytes (test code = Monocytes) 9.7 2.0-12.0 [facility] LancasterJjpdgarAVGXDVXIVL8950-74-28 06:13:00 Test Item Value Reference Range Interpretation Comments Macrocyte (test code = 1+ *ABN*(01/21/18 Macrocyte) 1:13 AM) [facility] LancasterXmiqzroSZDBCDHHCR0118-28-94 06:13:00 Test Item Value Reference Range Interpretation Comments Lymphocytes # (test code = Lymphocytes 1.8 1.0-5.5 #) [facility] LancasterAnqktxfANVIBGLVMJ2776-13-01 06:13:00 Test Item Value Reference Range Interpretation Comments Eosinophils # (test code = Eosinophils 0.2 <=0.5 #) [facility] LancasterXpsyiopYWNZOZFEYD4393-99-44 06:13:00 Test Item Value Reference Range Interpretation Comments Eosinophils (test code = Eosinophils) 1.6 <=4.0 [facility] LancasterEhynzcrPHXXTOOCGO1591-85-21 06:13:00 Test Item Value Reference Range Interpretation Comments MCHC (test code = MCHC) 34.8 32.0-36.0 [facility] LancasterMtzjmeiHNQVEIGYBY3323-78-05 06:13:00 Test Item Value Reference Range Interpretation Comments RDW (test code = RDW) 13.3 11.5-14.5 [place] [id number] 06:13:00 Test Item Value Reference Range Interpretation Comments Segs (test code = Segs) 69.6 45.0-75.0 [facility] ClareBiclklhKEOYNHJODG9988-47-88 06:13:00 Test Item Value Reference Range Interpretation Comments RBC (test code = RBC) 3.35 4.70-6.10 [facility] ClareQcjdxxsHRZQLSWWJU7914-38-75 06:13:00 Test Item Value Reference Range Interpretation Comments MCV (test code = MCV) 103.6 80.0-94.0 [facility] LancasterEdphbadEPLBFRDGCM9400-76-86 06:13:00 Test Item Value Reference Range Interpretation Comments Hct (test code = Hct) 34.7 42.0-54.0 [facility] ClareSeihkiwAGXEJDZNLM2173-46-67 06:13:00 Test Item Value Reference Range Interpretation Comments MCH (test code = MCH) 36.0 pg 27.0-31.0 [facility] LancasterSjrawykOMRPSHXNMN1392-23-75 06:13:00 Test Item Value Reference Range Interpretation Comments Hgb (test code = Hgb) 12.1 14.0-18.0 [facility] LancasterKkjfhglTPDNOEBVXP6601-94-24 06:13:00 Test Item Value Reference Range Interpretation Comments WBC (test code = WBC) 9.8 3.7-10.4 [facility]PEOIYRHYCR6551-27-85 06:13:00 Test Item Value Reference Range Interpretation Comments Platelet (test code = Platelet) 175 133-450 [facility] LancasterPsjxquqWORRNCQPVX8567-54-95 06:13:00 Test Item Value Reference Range Interpretation Comments MPV (test code = MPV) 7.9 7.4-10.4 [facility]PARATHYROID WAFFMNW0276-52-11 06:13:00 Test Item Value Reference Range Interpretation Comments Ca Norm WB (test code = Ca Norm WB) 1.12 1.05-1.25 [facility] SouthannPARATHYROID DJGLDVT7680-70-25 06:13:00 Test Item Value Reference Range Interpretation Comments Ca Ion WB (test code = Ca Ion WB) 1.11 1.05-1.25 [facility] SouthVlmgsxzRTEJBZVWCV6444-99-48 06:13:00 Test Item Value Reference Range Interpretation Comments Segs-Bands # (test code = Segs-Bands #) 6.8 1.5-8.1 [facility]2018-03-16 06:13:00 Test Item Value Reference Range Interpretation Comments Magnesium Lvl (test code = Magnesium 1.8 1.8-2.4 Lvl) [facility]2018-03-16 06:13:00 Test Item Value Reference Range Interpretation Comments Phosphorus (test code = Phosphorus) 3.7 2.5-4.5 [facility]2018-03-16 06:13:00 Test Item Value Reference Range Interpretation Comments eGFR (test code = eGFR) 112 [facility]2018-03-16 06:13:00 Test Item Value Reference Range Interpretation Comments Potassium Lvl (test code = Potassium 3.8 3.5-5.1 Lvl) [facility]2018-03-16 06:13:00 Test Item Value Reference Range Interpretation Comments Chloride Lvl (test code = Chloride Lvl) 108 95-109 [facility]2018-03-16 06:13:00 Test Item Value Reference Range Interpretation Comments Calcium Lvl (test code = Calcium Lvl) 8.7 8.5-10.5 [facility]2018-03-16 06:13:00 Test Item Value Reference Range Interpretation Comments CO2 (test code = CO2) 22 24-32 [facility]2018-03-16 06:13:00 Test Item Value Reference Range Interpretation Comments Creatinine Lvl (test code = Creatinine 0.46 0.50-1.40 Lvl) [facility]2018-03-16 06:13:00 Test Item Value Reference Range Interpretation Comments Glucose Lvl (test code = Glucose Lvl) 86 70-99 [facility]2018-03-16 06:13:00 Test Item Value Reference Range Interpretation Comments BUN (test code = BUN) 9 7-22 [facility]EkqejsmTHSFELHMZN5182-20-55 06:13:00 Test Item Value Reference Range Interpretation Comments Monocytes # (test code 1.0 See_Comment [Aut omated message] The = Monocytes #) system which generated this result tra nsmitted reference range : <=0.8. The reference r melody was not used to int erpret this result as normal/abnormal . [facility]2018-03-16 06:13:00 Test Item Value Reference Range Interpretation Comments Sodium Lvl (test code = Sodium Lvl) 141 135-145 [facility]2018-03-16 06:13:00 Test Item Value Reference Range Interpretation Comments AGAP (test code = AGAP) 14.8 10.0-20.0 [facility] LancasterEuhdkhrXEYRQEMIHP5391-89-60 06:13:00 Test Item Value Reference Range Interpretation Comments Lymphocytes (test code = Lymphocytes) 18.8 20.0-40.0 [facility] LancasterNgbgvpwNLCUDRFCZP8887-29-09 06:13:00 Test Item Value Reference Range Interpretation Comments Monocytes (test code = Monocytes) 9.7 2.0-12.0 [facility] LancasterCottjbySFNAQXSLDR2534-70-59 06:13:00 Test Item Value Reference Range Interpretation Comments Macrocyte (test code = 1+ *ABN*(01/21/18 Macrocyte) 1:13 AM) [facility] LancasterOgsnoerILVMEHOSMB1519-54-05 06:13:00 Test Item Value Reference Range Interpretation Comments Segs (test code = Segs) 69.6 45.0-75.0 [facility] LancasterZvdhbhfXAOCSAVEFS3853-71-35 06:13:00 Test Item Value Reference Range Interpretation Comments Segs-Bands # (test code = Segs-Bands #) 6.8 1.5-8.1 [facility] LancasterWgertxlSPSDFZEOFS9495-58-47 06:13:00 Test Item Value Reference Range Interpretation Comments Monocytes # (test code = Monocytes #) 1.0 <=0.8 [facility] LancasterArjcfqlEBDJSSISQZ1093-23-86 06:13:00 Test Item Value Reference Range Interpretation Comments Basophils (test code = Basophils) 0.3 <=1.0 [facility] LancasterPflffxcWMRNZFFJZH8835-33-81 06:13:00 Test Item Value Reference Range Interpretation Comments Basophils (test code = 0.3 See_Comment [Aut omated message] The Basophils) system which ge nerated this result tra nsmitted reference range : <=1.0. The reference r melody was not used to int erpret this result as normal/abnormal . [facility] LancasterCtrgbhdOVWEWJSWXS3242-55-75 06:13:00 Test Item Value Reference Range Interpretation Comments Lymphocytes # (test code = Lymphocytes 1.8 1.0-5.5 #) [facility] LancasterEhxqawmEXGYCWQKJM2286-15-76 06:13:00 Test Item Value Reference Range Interpretation Comments Eosinophils (test code = 1.6 See_Comment [A utomated message] The Eosinophils) system which ge nerated this result tra nsmitted reference range : <=4.0. The reference r melody was not used to int erpret this result as normal/abnormal . [facility] LancasterXbvaxruPYVJBCIRJU9597-14-55 06:13:00 Test Item Value Reference Range Interpretation Comments MCHC (test code = MCHC) 34.8 32.0-36.0 [facility] LancasterRllnwzeHQLWSJOPUL1187-66-99 06:13:00 Test Item Value Reference Range Interpretation Comments RDW (test code = RDW) 13.3 11.5-14.5 [facility] LancasterMpzyzuxDNYFTCXYMK4255-40-69 06:13:00 Test Item Value Reference Range Interpretation Comments RBC (test code = RBC) 3.35 4.70-6.10 [facility] LancasterWwhrtesFBFKUXHCWF2394-44-16 06:13:00 Test Item Value Reference Range Interpretation Comments MCV (test code = MCV) 103.6 80.0-94.0 [facility] LancasterSgocvcdETDVFELXTJ9986-48-19 06:13:00 Test Item Value Reference Range Interpretation Comments Hct (test code = Hct) 34.7 42.0-54.0 [facility] PHFYXQH3460-42-33 18:14:00 Test Item Value Reference Range Interpretation Comments Troponin-T (test code = Troponin-T) 0.020 <=0.100 [facility] WFUTUPL4893-93-77 18:14:00 Test Item Value Reference Range Interpretation Comments Total CK (test code = Total CK) 472 12-191 [facility] UJVXQBX5059-53-44 18:14:00 Test Item Value Reference Range Interpretation Comments Troponin-I (test code = Troponin-I) 0.32 <=0.40 [facility] HGXPVVD5884-56-58 18:14:00 Test Item Value Reference Range Interpretation Comments CK MB Index (test code = CK MB Index) 0.6 1 <=2.5 [facility] ZRTNFAZ4324-95-15 18:14:00 Test Item Value Reference Range Interpretation Comments CK MB (test code = CK MB) 2.9 0.5-3.6 [facility] NNPHMIO9133-31-85 18:14:00 Test Item Value Reference Range Interpretation Comments Troponin-T (test code 0.020 See_Comment [Auto mated message] The = Troponin-T) system which g enerated this result transmit mary alice reference range : <=0.100. The reference r melody was not used to interpr et this result as mark l/abnormal. [facility]App[facility]ionsTRIST[facility] YGGAJBW0852-56-96 18:14:00 Test Item Value Reference Range Interpretation Comments Total CK (test code = Total CK) 472 12-191 [facility] BMOTGQE3948-48-26 18:14:00 Test Item Value Reference Range Interpretation Comments Troponin-I (test code 0.32 See_Comment [Auto mated message] The = Troponin-I) system which g enerated this result transmit mary alice reference range : <=0.40. The reference r melody was not used to interpr et this result as mark l/abnormal. [facility] [id number] 18:14:00 Test Item Value Reference Range Interpretation Comments CK MB Index (test 0.6 1 See_Comment [Automate d message] The code = CK MB Index) system w [facility] generated this result transmit mary alice reference range : <=2.5. The reference range was not used to interpr et this result as mark l/abnormal. [facility]AppinionsTRIST[facility] KTYLSOQ6297-88-64 18:14:00 Test Item Value Reference Range Interpretation Comments CK MB (test code = CK MB) 2.9 0.5-3.6 [facility] HospitalHzoifbuSIIPIWBWKZ1158-36-15 14:32:00 Test Item Value Reference Range Interpretation Comments POC Activated Clotting Time (test code 137 s = POC Activated Clotting Time) [facility] HospitalBbswebjKVGGOPBTMJ6685-27-35 14:32:00 Test Item Value Reference Range Interpretation Comments POC Activated Clotting Time (test code 137 s = POC Activated Clotting Time) [facility] GYAFOSD1765-50-33 13:49:00 Test Item Value Reference Range Interpretation Comments CK MB (test code = CK MB) 3.4 0.5-3.6 [facility] [id number] 13:49:00 Test Item Value Reference Range Interpretation Comments CK MB Index (test code = CK MB Index) 0.7 1 <=2.5 [facility] WSSPBGK0278-67-87 13:49:00 Test Item Value Reference Range Interpretation Comments Troponin-I (test code = Troponin-I) 0.33 <=0.40 [facility] Vega-ChiannCARDIAC [id number] 13:49:00 Test Item Value Reference Range Interpretation Comments Troponin-T (test code = Troponin-T) 0.063 <=0.100 [facility] [employer] HNTCBMG8903-40-63 13:49:00 Test Item Value Reference Range Interpretation Comments Total CK (test code = Total CK) 511 [facility] [employer]AC CSYFRFT7479-38-31 13:49:00 Test Item Value Reference Range Interpretation Comments CK MB (test code = CK MB) 3.4 0.5-3.6 [facility] [employer]ega-ChiannMilk A DealAC KKOYRLQ2611-03-56 13:49:00 Test Item Value Reference Range Interpretation Comments CK MB Index (test 0.7 1 See_Comment [Automate d message] The code = CK MB Index) system w [facility] generated this result transmit mary alice reference range : <=2.5. The reference range was not used to interpr et this result as mark l/abnormal. [facility] [employer]2018-03-15 13:49:00 Test Item Value Reference Range Interpretation Comments Troponin-I (test code 0.33 See_Comment [Auto mated message] The = Troponin-I) system which g enerated this result transmit mary alice reference range : <=0.40. The reference r melody was not used to interpr et this result as mark l/abnormal. [facility] [employer]2018-03-15 13:49:00 Test Item Value Reference Range Interpretation Comments Troponin-T (test code 0.063 See_Comment [Auto mated message] The = Troponin-T) system which g enerated this result transmit mary alice reference range : <=0.100. The reference r melody was not used to interpr et this result as mark l/abnormal. [facility] [employer]2018-03-15 13:49:00 Test Item Value Reference Range Interpretation Comments Total CK (test code = Total CK) 511 [facility] [employer] [id number] 09:10:00 Test Item Value Reference Range Interpretation Comments Magnesium Lvl (test code = Magnesium 1.9 1.8-2.4 Lvl) [facility]2018-03-15 09:10:00 Test Item Value Reference Range Interpretation Comments Phosphorus (test code = Phosphorus) 2.6 2.5-4.5 [facility]KxhomczIBIHJBERVGLT3810-51-01 09:10:00 Test Item Value Reference Range Interpretation Comments AGAP (test code = AGAP) 12.8 10.0-20.0 [facility] HospitalXqctbmnZODKBRNWPDVJ1301-05-23 09:10:00 Test Item Value Reference Range Interpretation Comments eGFR (test code = eGFR) 116 [facility] HospitalDynxovzFIDZTHZXCRTC6028-79-57 09:10:00 Test Item Value Reference Range Interpretation Comments Glucose Lvl (test code = Glucose Lvl) 83 70-99 [facility] HospitalVtmqrirXMNHZJBJQEAZ4410-03-69 09:10:00 Test Item Value Reference Range Interpretation Comments BUN (test code = BUN) 10 7-22 [facility] HospitalMphnlxwAJHBTGVJZYNV4389-43-23 09:10:00 Test Item Value Reference Range Interpretation Comments Creatinine Lvl (test code = Creatinine 0.42 0.50-1.40 Lvl) [facility] HospitalFuqjoqzDCTRRCTROVLQ3885-19-09 09:10:00 Test Item Value Reference Range Interpretation Comments Sodium Lvl (test code = Sodium Lvl) 141 135-145 [facility] HospitalJzkcgypCKUWMQDDABUF4522-97-19 09:10:00 Test Item Value Reference Range Interpretation Comments Potassium Lvl (test code = Potassium 3.8 3.5-5.1 Lvl) [facility] HospitalIpdyqqgUBELUCHOBQHH3861-91-36 09:10:00 Test Item Value Reference Range Interpretation Comments CO2 (test code = CO2) 24 24-32 [facility] HospitalIunztjlMOHBEMCIUSPH8187-83-10 09:10:00 Test Item Value Reference Range Interpretation Comments Chloride Lvl (test code = Chloride Lvl) 108 95-109 [facility] HospitalHbzcrauBLSIQPAHGPED8185-42-99 09:10:00 Test Item Value Reference Range Interpretation Comments Calcium Lvl (test code = Calcium Lvl) 8.6 8.5-10.5 [facility] LancasterQywacjeJUUYHOFPPW4476-51-92 09:10:00 Test Item Value Reference Range Interpretation Comments Eosinophils (test code = Eosinophils) 1.2 <=4.0 [facility] LancasterQzthzffISTQNDQVBN8373-84-08 09:10:00 Test Item Value Reference Range Interpretation Comments Monocytes (test code = Monocytes) 10.4 2.0-12.0 [facility] LancasterLodsureXWJKIYJBGB2450-18-90 09:10:00 Test Item Value Reference Range Interpretation Comments Segs-Bands # (test code = Segs-Bands #) 6.4 1.5-8.1 [facility] LancasterTbqtsjzBKEZQUIMRY9291-65-51 09:10:00 Test Item Value Reference Range Interpretation Comments Basophils (test code = Basophils) 0.4 <=1.0 [facility] LancasterXokwovnSEMPJEEKWV7692-75-43 09:10:00 Test Item Value Reference Range Interpretation Comments Monocytes # (test code = Monocytes #) 1.0 <=0.8 [facility] LancasterYtvgoquCOJAQRQCID8042-90-35 09:10:00 Test Item Value Reference Range Interpretation Comments Eosinophils # (test code = Eosinophils 0.1 <=0.5 #) [facility] LancasterOagsyeyGFANEICPRW5214-71-63 09:10:00 Test Item Value Reference Range Interpretation Comments Lymphocytes # (test code = Lymphocytes 1.7 1.0-5.5 #) [facility] LancasterZtndkvuOZDHIROTFL6387-65-51 09:10:00 Test Item Value Reference Range Interpretation Comments Macrocyte (test code = 1+ *ABN*(01/20/18 Macrocyte) 4:10 AM) [facility] LancasterVxvikdiZTHWLFYMDH4848-52-60 09:10:00 Test Item Value Reference Range Interpretation Comments Lymphocytes (test code = Lymphocytes) 18.1 20.0-40.0 [facility] LancasterKlnfyznVZSPMCIFPW0198-09-99 09:10:00 Test Item Value Reference Range Interpretation Comments Segs (test code = Segs) 69.9 45.0-75.0 [facility] LancasterCdmzyseNTRKJESYTN5194-56-33 09:10:00 Test Item Value Reference Range Interpretation Comments WBC (test code = WBC) 9.2 3.7-10.4 [facility] LancasterJujkcopDRCHFQUUER0965-46-01 09:10:00 Test Item Value Reference Range Interpretation Comments Hct (test code = Hct) 36.8 42.0-54.0 [facility] LancasterJiiadpaQZIMSIKEWK6969-77-59 09:10:00 Test Item Value Reference Range Interpretation Comments RBC (test code = RBC) 3.53 4.70-6.10 [facility] LancasterGmxowqsEABOHSCBEC4648-21-59 09:10:00 Test Item Value Reference Range Interpretation Comments Hgb (test code = Hgb) 12.6 14.0-18.0 [facility] ClareIxevglbKDCSUESVBO9434-15-97 09:10:00 Test Item Value Reference Range Interpretation Comments MCV (test code = MCV) 104.2 80.0-94.0 [facility] ClarePsjysuzIXDPYXLBKG3486-56-32 09:10:00 Test Item Value Reference Range Interpretation Comments MCH (test code = MCH) 35.8 pg 27.0-31.0 [facility] ClareGnordeuEMWVJGJKKS5400-92-79 09:10:00 Test Item Value Reference Range Interpretation Comments MPV (test code = MPV) 7.4 7.4-10.4 [facility] ClareUmusufsZEKMTCPODX3228-36-36 09:10:00 Test Item Value Reference Range Interpretation Comments MCHC (test code = MCHC) 34.4 32.0-36.0 [facility] LancasterFrepgvpXLAVUMYWCW0155-10-64 09:10:00 Test Item Value Reference Range Interpretation Comments RDW (test code = RDW) 13.6 11.5-14.5 [facility] ClareRafftiyKRLKAIYMEP6727-65-12 09:10:00 Test Item Value Reference Range Interpretation Comments Platelet (test code = Platelet) 170 133-450 [facility]PARATHYROID DANLMRD3021-26-43 09:10:00 Test Item Value Reference Range Interpretation Comments Ca Ion WB (test code = Ca Ion WB) 1.09 1.05-1.25 [facility]PARATHYROID MCJPRIG5260-13-64 09:10:00 Test Item Value Reference Range Interpretation Comments Ca Norm WB (test code = Ca Norm WB) 1.11 1.05-1.25 [facility] HospitalCHEM AALLV7051-71-20 09:10:00 Test Item Value Reference Range Interpretation Comments Magnesium Lvl (test code = Magnesium 1.9 1.8-2.4 Lvl) [facility] HospitalCHEM LOCDS0473-93-22 09:10:00 Test Item Value Reference Range Interpretation Comments Phosphorus (test code = Phosphorus) 2.6 2.5-4.5 [facility] HospitalOghomjdDGVTICEBYUPG7715-01-60 09:10:00 Test Item Value Reference Range Interpretation Comments AGAP (test code = AGAP) 12.8 10.0-20.0 [facility] HospitalChuhkofVJINZBSBZBUX6543-06-56 09:10:00 Test Item Value Reference Range Interpretation Comments eGFR (test code = eGFR) 116 [facility]VcazdynOJDMUVDGSDHV5714-51-92 09:10:00 Test Item Value Reference Range Interpretation Comments Glucose Lvl (test code = Glucose Lvl) 83 70-99 [facility] HospitalShdxwslXUWGQEWYNWCS7262-40-79 09:10:00 Test Item Value Reference Range Interpretation Comments BUN (test code = BUN) 10 7-22 [facility] HospitalBntpcfrDGWIEZTEKODG9633-08-58 09:10:00 Test Item Value Reference Range Interpretation Comments Creatinine Lvl (test code = Creatinine 0.42 0.50-1.40 Lvl) [facility] HospitalLolotbcQBJMXUDGNQBB0049-00-29 09:10:00 Test Item Value Reference Range Interpretation Comments Sodium Lvl (test code = Sodium Lvl) 141 135-145 [facility] HospitalZfvaqtiNMDYVELFQMTS0538-49-02 09:10:00 Test Item Value Reference Range Interpretation Comments Potassium Lvl (test code = Potassium 3.8 3.5-5.1 Lvl) [facility] HospitalBjdjhanZCMCADNJJFQR2288-60-42 09:10:00 Test Item Value Reference Range Interpretation Comments CO2 (test code = CO2) 24 24-32 [facility] HospitalQfxqolpQYMINIAEWTZJ4804-27-06 09:10:00 Test Item Value Reference Range Interpretation Comments Chloride Lvl (test code = Chloride Lvl) 108 95-109 [facility] HospitalSxpvsspHCAONBPPZAFZ5723-95-07 09:10:00 Test Item Value Reference Range Interpretation Comments Calcium Lvl (test code = Calcium Lvl) 8.6 8.5-10.5 [facility] LancasterLxivtogQIMCDMLJVM9958-10-85 09:10:00 Test Item Value Reference Range Interpretation Comments Eosinophils (test code = 1.2 See_Comment [A utomated message] The Eosinophils) system which ge nerated this result tra nsmitted reference range : <=4.0. The reference r melody was not used to int erpret this result as normal/abnormal . [facility] LancasterZibhddlSAFDRYJKII7331-69-10 09:10:00 Test Item Value Reference Range Interpretation Comments Monocytes (test code = Monocytes) 10.4 2.0-12.0 [facility] LancasterCjavxmhCANLSOVNNR7017-52-63 09:10:00 Test Item Value Reference Range Interpretation Comments Segs-Bands # (test code = Segs-Bands #) 6.4 1.5-8.1 [facility] LancasterNrefbogXLUGPPCBJO5348-39-28 09:10:00 Test Item Value Reference Range Interpretation Comments Basophils (test code = 0.4 See_Comment [Aut omated message] The Basophils) system which ge nerated this result tra nsmitted reference range : <=1.0. The reference r melody was not used to int erpret this result as normal/abnormal . [facility] LancasterFihedwyWHNVOWHDZE3976-49-07 09:10:00 Test Item Value Reference Range Interpretation Comments Monocytes # (test code 1.0 See_Comment [Aut omated message] The = Monocytes #) system which generated this result tra nsmitted reference range : <=0.8. The reference r melody was not used to int erpret this result as normal/abnormal . [facility] LancasterOoznpzpVKUESPPXIZ6758-42-15 09:10:00 Test Item Value Reference Range Interpretation Comments Eosinophils # (test code 0.1 See_Comment [A utomated message] The = Eosinophils #) system whic h generated this result tra nsmitted reference range : <=0.5. The reference r melody was not used to int erpret this result as normal/abnormal . [facility] LancasterEpmvbooMPGGVBNQYS4569-48-46 09:10:00 Test Item Value Reference Range Interpretation Comments Lymphocytes # (test code = Lymphocytes 1.7 1.0-5.5 #) [facility] LancasterQpykjotWDASNYBJTA7956-91-51 09:10:00 Test Item Value Reference Range Interpretation Comments Macrocyte (test code = 1+ *ABN*(01/20/18 Macrocyte) 4:10 AM) [facility] LancasterPcyfbyaGGLLQFFGEB6578-25-91 09:10:00 Test Item Value Reference Range Interpretation Comments Lymphocytes (test code = Lymphocytes) 18.1 20.0-40.0 [facility] LancasterQivfaroJVOQVPQYOM2852-77-97 09:10:00 Test Item Value Reference Range Interpretation Comments Segs (test code = Segs) 69.9 45.0-75.0 [facility] LancasterRgffpcrIVKHYONVPM2617-12-41 09:10:00 Test Item Value Reference Range Interpretation Comments WBC (test code = WBC) 9.2 3.7-10.4 [facility] LancasterRiohcnoXOAXQQYDKI2241-47-50 09:10:00 Test Item Value Reference Range Interpretation Comments Hct (test code = Hct) 36.8 42.0-54.0 [facility] LancasterIvtmrmmLOIBVRFSOY1655-58-14 09:10:00 Test Item Value Reference Range Interpretation Comments RBC (test code = RBC) 3.53 4.70-6.10 [facility] ClareIcranrlECMBPVYEPU9752-77-52 09:10:00 Test Item Value Reference Range Interpretation Comments Hgb (test code = Hgb) 12.6 14.0-18.0 [facility] LancasterQtrbicqINRDCEJSQC0244-40-96 09:10:00 Test Item Value Reference Range Interpretation Comments MCV (test code = MCV) 104.2 80.0-94.0 [facility] ClareCnomddxZTGWWTVDMG5543-67-44 09:10:00 Test Item Value Reference Range Interpretation Comments MCH (test code = MCH) 35.8 pg 27.0-31.0 [facility] LancasterFjnfnwdEELKAEJCIH6247-20-73 09:10:00 Test Item Value Reference Range Interpretation Comments MPV (test code = MPV) 7.4 7.4-10.4 [facility] LancasterYgehmlxZVUBZAAJVI1666-19-92 09:10:00 Test Item Value Reference Range Interpretation Comments MCHC (test code = MCHC) 34.4 32.0-36.0 [facility] ClareLfcqgumRWDNXKNUVL7608-11-49 09:10:00 Test Item Value Reference Range Interpretation Comments RDW (test code = RDW) 13.6 11.5-14.5 [facility] ClareEbqtwrnLSTPNJLIPU1998-80-49 09:10:00 Test Item Value Reference Range Interpretation Comments Platelet (test code = Platelet) 170 133-450 [facility] OSNLMAN6598-44-79 09:10:00 Test Item Value Reference Range Interpretation Comments Ca Ion WB (test code = Ca Ion WB) 1.09 1.05-1.25 [facility]PARATHYROID JFSARSL5201-94-85 09:10:00 Test Item Value Reference Range Interpretation Comments Ca Norm WB (test code = Ca Norm WB) 1.11 1.05-1.25 [facility]CARDIAC MQJBQKF0152-47-92 22:12:00 Test Item Value Reference Range Interpretation Comments Troponin-T (test code = Troponin-T) 0.075 <=0.100 [facility] EVFQDES3653-81-15 22:12:00 Test Item Value Reference Range Interpretation Comments Troponin-T (test code 0.075 See_Comment [Auto mated message] The = Troponin-T) system which g enerated this result transmit mary alice reference range : <=0.100. The reference r melody was not used to interpr et this result as mark l/abnormal. [facility] HospitalHioftqmGVQWDBHRSKPN1203-35-06 20:02:00 Test Item Value Reference Range Interpretation Comments Potassium Lvl (test code = Potassium 4.1 3.5-5.1 Lvl) [facility] HospitalGqihguyQMTGGJWWJHZI7018-21-84 20:02:00 Test Item Value Reference Range Interpretation Comments Potassium Lvl (test code = Potassium 4.1 3.5-5.1 Lvl) [facility]2018-03-14 18:01:00 Test Item Value Reference Range Interpretation Comments Vitamin B12 Lvl (test code = Vitamin 755 790-5449 B12 Lvl) [facility]2018-03-14 18:01:00 Test Item Value Reference Range Interpretation Comments Folate Lvl (test code = Folate Lvl) 25.9 [facility] LancasterHxyztufBWSVEBPDJU4529-30-76 18:01:00 Test Item Value Reference Range Interpretation Comments Plav Effect Plt (test code = Plav 143 Effect Plt) [facility] LancasterYlazrglJKMNWHRNVO1504-49-51 18:01:00 Test Item Value Reference Range Interpretation Comments ASA Effect Plt (test code = ASA Effect 474 Plt) [facility]2018-03-14 18:01:00 Test Item Value Reference Range Interpretation Comments Vitamin B12 Lvl (test code = Vitamin 283 136-5997 B12 Lvl) [facility]2018-03-14 18:01:00 Test Item Value Reference Range Interpretation Comments Folate Lvl (test code = Folate Lvl) 25.9 [facility] LancasterIpoiffmRXHXGJLTUU3816-14-33 18:01:00 Test Item Value Reference Range Interpretation Comments Plav Effect Plt (test code = Plav 143 Effect Plt) [facility] LancasterVkmgmuwINBLRFPTSL6535-69-61 18:01:00 Test Item Value Reference Range Interpretation Comments ASA Effect Plt (test code = ASA Effect 474 Plt) [facility] [id number] 15:43:00 Test Item Value Reference Range Interpretation Comments UA Mucus (test code = UA Mucus) Few /LPF [facility]2018-03-14 15:43:00 Test Item Value Reference Range Interpretation Comments UA Blood (test code = Negative (01/19/18 10:43 UA Blood) AM) [facility] AND [id number] 15:43:00 Test Item Value Reference Range Interpretation Comments UA Nitrite (test code Negative (01/19/18 10:43 = UA Nitrite) AM) [facility] AND [id number] 15:43:00 Test Item Value Reference Range Interpretation Comments UA Bili (test code = Negative *NA*(01/19/18 UA Bili) 10:43 AM) [facility] AND [id number] 15:43:00 Test Item Value Reference Range Interpretation Comments UA Sq Epi (test code = UA Sq Epi) None Seen [facility] AND [id number] 15:43:00 Test Item Value Reference Range Interpretation Comments UA Ketones (test code = UA Ketones) 40 mg/dL [facility] AND [id number] 15:43:00 Test Item Value Reference Range Interpretation Comments UA Glucose (test code = UA Negative mg/dL Glucose) [facility] AND [id number] 15:43:00 Test Item Value Reference Range Interpretation Comments UA pH (test code = UA pH) 7.0 1 5.0-8.0 [facility] AND [id number] 15:43:00 Test Item Value Reference Range Interpretation Comments UA Protein (test code = UA Protein) 30 mg/dL [facility] AND [id number] 15:43:00 Test Item Value Reference Range Interpretation Comments UA Turbidity (test code Slight *ABN*(01/19/18 = UA Turbidity) 10:43 AM) [facility] AND [id number] 15:43:00 Test Item Value Reference Range Interpretation Comments UA Spec Grav (test code = UA Spec 1.018 1 Grav) [facility] AND [id number] 15:43:00 Test Item Value Reference Range Interpretation Comments UA Color (test code = Yellow *NA*(01/19/18 UA Color) 10:43 AM) [facility]2018-03-14 15:43:00 Test Item Value Reference Range Interpretation Comments Folate Lvl (test code = Folate Lvl) 25.5 [facility]2018-03-14 15:43:00 Test Item Value Reference Range Interpretation Comments Vitamin B12 Lvl (test code = Vitamin 625 875-5019 B12 Lvl) [facility] [id number] 15:43:00 Test Item Value Reference Range Interpretation Comments UDS Note (test code = See Note *NA*(01/19/18 UDS Note) 10:43 AM) [facility] [id number] 15:43:00 Test Item Value Reference Range Interpretation Comments U Cannab Scr (test Negative *NA*(01/19/18 code = U Cannab Scr) 10:43 AM) [facility] [id number] 15:43:00 Test Item Value Reference Range Interpretation Comments U Phencyc Scr (test Negative *NA*(01/19/18 code = U Phencyc Scr) 10:43 AM) [facility] [id number] 15:43:00 Test Item Value Reference Range Interpretation Comments U Opiate Scr (test Negative *NA*(01/19/18 code = U Opiate Scr) 10:43 AM) [facility] [id number] 15:43:00 Test Item Value Reference Range Interpretation Comments U Benzodia Scr (test Negative *NA*(01/19/18 code = U Benzodia Scr) 10:43 AM) [facility] [id number] 15:43:00 Test Item Value Reference Range Interpretation Comments U Cocaine Scr (test Negative *NA*(01/19/18 code = U Cocaine Scr) 10:43 AM) [facility] [id number] 15:43:00 Test Item Value Reference Range Interpretation Comments U Amph Scr (test code Negative *NA*(01/19/18 = U Amph Scr) 10:43 AM) [facility] [id number] 15:43:00 Test Item Value Reference Range Interpretation Comments U Micaela Scr (test code Negative *NA*(01/19/18 = U Micaela Scr) 10:43 AM) [facility] [id number] 15:43:00 Test Item Value Reference Range Interpretation Comments UA Urobilinogen (test code = UA >=12.0 mg/dL 0.1-1.0 Urobilinogen) [facility] [id number] 15:43:00 Test Item Value Reference Range Interpretation Comments UA Leuk Est (test Negative (01/19/18 10:43 code = UA Leuk Est) AM) [facility] AND [id number] 15:43:00 Test Item Value Reference Range Interpretation Comments UA Mucus (test code = UA Mucus) Few /LPF [facility] AND [id number] 15:43:00 Test Item Value Reference Range Interpretation Comments UA Blood (test code = Negative (01/19/18 10:43 UA Blood) AM) [facility] AND [id number] 15:43:00 Test Item Value Reference Range Interpretation Comments UA Nitrite (test code Negative (01/19/18 10:43 = UA Nitrite) AM) [facility] AND [id number] 15:43:00 Test Item Value Reference Range Interpretation Comments UA Bili (test code = Negative *NA*(01/19/18 UA Bili) 10:43 AM) [facility] AND [id number] 15:43:00 Test Item Value Reference Range Interpretation Comments UA Sq Epi (test code = UA Sq Epi) None Seen [facility] AND [id number] 15:43:00 Test Item Value Reference Range Interpretation Comments UA Ketones (test code = UA Ketones) 40 mg/dL [facility] AND [id number] 15:43:00 Test Item Value Reference Range Interpretation Comments UA Glucose (test code = UA Negative mg/dL Glucose) [facility] AND [id number] 15:43:00 Test Item Value Reference Range Interpretation Comments UA pH (test code = UA pH) 7.0 1 5.0-8.0 [facility] AND [id number] 15:43:00 Test Item Value Reference Range Interpretation Comments UA Protein (test code = UA Protein) 30 mg/dL [facility] AND [id number] 15:43:00 Test Item Value Reference Range Interpretation Comments UA Turbidity (test code Slight *ABN*(01/19/18 = UA Turbidity) 10:43 AM) [facility] AND [id number] 15:43:00 Test Item Value Reference Range Interpretation Comments UA Spec Grav (test code = UA Spec 1.018 1 Grav) [facility] AND [id number] 15:43:00 Test Item Value Reference Range Interpretation Comments UA Color (test code = Yellow *NA*(01/19/18 UA Color) 10:43 AM) [facility] [id number] 15:43:00 Test Item Value Reference Range Interpretation Comments Folate Lvl (test code = Folate Lvl) 25.5 [facility] [id number] 15:43:00 Test Item Value Reference Range Interpretation Comments Vitamin B12 Lvl (test code = Vitamin [phone] B12 Lvl) [facility] [id number] 15:43:00 Test Item Value Reference Range Interpretation Comments UDS Note (test code = See Note *NA*(01/19/18 UDS Note) 10:43 AM) [facility] [id number] 15:43:00 Test Item Value Reference Range Interpretation Comments U Cannab Scr (test Negative *NA*(01/19/18 code = U Cannab Scr) 10:43 AM) [facility] [id number] 15:43:00 Test Item Value Reference Range Interpretation Comments U Phencyc Scr (test Negative *NA*(01/19/18 code = U Phencyc Scr) 10:43 AM) [facility] [id number] 15:43:00 Test Item Value Reference Range Interpretation Comments U Opiate Scr (test Negative *NA*(01/19/18 code = U Opiate Scr) 10:43 AM) [facility] [id number] 15:43:00 Test Item Value Reference Range Interpretation Comments U Benzodia Scr (test Negative *NA*(01/19/18 code = U Benzodia Scr) 10:43 AM) [facility] [id number] 15:43:00 Test Item Value Reference Range Interpretation Comments U Cocaine Scr (test Negative *NA*(01/19/18 code = U Cocaine Scr) 10:43 AM) [facility] [id number] 15:43:00 Test Item Value Reference Range Interpretation Comments U Amph Scr (test code Negative *NA*(01/19/18 = U Amph Scr) 10:43 AM) [facility] [id number] 15:43:00 Test Item Value Reference Range Interpretation Comments U Micaela Scr (test code Negative *NA*(01/19/18 = U Micaela Scr) 10:43 AM) [facility] AND [id number] 15:43:00 Test Item Value Reference Range Interpretation Comments UA Urobilinogen (test code = UA >=12.0 mg/dL 0.1-1.0 Urobilinogen) [facility] AND [id number] 15:43:00 Test Item Value Reference Range Interpretation Comments UA Leuk Est (test Negative (01/19/18 10:43 code = UA Leuk Est) AM) [facility] [id number] 15:09:00 Test Item Value Reference Range Interpretation Comments MRSA by PCR (test Negative (01/19/18 10:09 code = MRSA by PCR) AM) [facility] [id number] 15:09:00 Test Item Value Reference Range Interpretation Comments MRSA by PCR (test Negative (01/19/18 10:09 code = MRSA by PCR) AM) [facility] Lancast[id number] 09:30:00 Test Item Value Reference Range Interpretation Comments PTT (test code = PTT) 35.4 s 22.9-35.8 [facility] LancasterMkypubqLFDCUIOBDK8570-62-19 09:30:00 Test Item Value Reference Range Interpretation Comments PT (test code = PT) 16.1 s 12.0-14.7 [facility] LancasterZaeyffsLNCJSWTXEV5418-93-29 09:30:00 Test Item Value Reference Range Interpretation Comments INR (test code = INR) 1.28 1 0.85-1.17 [facility] LancasterXlbppooCGQZLIUSKW1767-00-40 09:30:00 Test Item Value Reference Range Interpretation Comments PTT (test code = PTT) 35.4 s 22.9-35.8 [facility] LancasterPuncsheYAXIWNNMTK9708-55-50 09:30:00 Test Item Value Reference Range Interpretation Comments PT (test code = PT) 16.1 s 12.0-14.7 [facility] LancasterMqmtjnoVNXEXWHXMA0121-18-22 09:30:00 Test Item Value Reference Range Interpretation Comments INR (test code = INR) 1.28 1 0.85-1.17 [facility] BANK [id number] 09:23:00 Test Item Value Reference Range Interpretation Comments Antibody Scrn (test Negative (01/19/18 4:23 code = Antibody Scrn) AM) [facility] [employer] BANK [id number] 09:23:00 Test Item Value Reference Range Interpretation Comments ABO/Rh (test code = ABO/Rh) A [facility] [id number] 09:23:00 Test Item Value Reference Range Interpretation Comments Troponin-I (test code 1.48 See_Comment [Auto mated message] The = Troponin-I) system which g enerated this result transmit mary alice reference range : <=0.40. The reference r melody was not used to interpr et this result as mark l/abnormal. [employer] [id number] 09:23:00 Test Item Value Reference Range Interpretation Comments Total CK (test code = Total CK) 399 12-191 [facility] [employer] [id number] 09:23:00 Test Item Value Reference Range Interpretation Comments CK MB Index (test 1.8 1 See_Comment [Automate d message] The code = CK MB Index) system w [facility] generated this result transmit mary alice reference range : <=2.5. The reference range was not used to interpr et this result as mark l/abnormal. [employer] [id number] 09:23:00 Test Item Value Reference Range Interpretation Comments CK MB (test code = CK MB) 7.1 0.5-3.6 [facility] [employer] [id number] 09:23:00 Test Item Value Reference Range Interpretation Comments Globulin (test code = Globulin) 2.9 2.7-4.2 [facility] [id number] 09:23:00 Test Item Value Reference Range Interpretation Comments A/G Ratio (test code = A/G Ratio) 1.1 1 0.7-1.6 [facility] [id number] 09:23:00 Test Item Value Reference Range Interpretation Comments Bili Indirect (test 0.4 See_Comment [Automa mary alice message] The code = Bili Indirect) system which generated this result tra nsmitted reference range : <=1.0. The reference r melody was not used to int erpret this result as normal/abnormal . [facility] [id number] 09:23:00 Test Item Value Reference Range Interpretation Comments AST (test code = AST) 33 See_Comment [Auto mated message] The system which ge nerated this result transmit mary alice reference range : <=37. The reference range was not used to interpr et this result as mark l/abnormal. [facility]2018-03-14 09:23:00 Test Item Value Reference Range Interpretation Comments Alk Phos (test code = Alk Phos) 60 39-136 [facility] SouthPlayFirstNOVANT [facility] THOM[facility] MED[facility] [id number] 09:23:00 Test Item Value Reference Range Interpretation Comments Bili Total (test code = Bili Total) 0.6 0.2-1.3 [facility]2018-03-14 09:23:00 Test Item Value Reference Range Interpretation Comments Bili Direct (test code 0.2 See_Comment [Aut omated message] The = Bili Direct) system which generated this result tra nsmitted reference range : <=0.3. The reference r melody was not used to int erpret this result as mark l/abnormal. [facility]2018-03-14 09:23:00 Test Item Value Reference Range Interpretation Comments Albumin Lvl (test code = Albumin Lvl) 3.1 3.5-5.0 [facility] SouthPlayFirstNOVANT HE[facility] MEDICAL [id number] 09:23:00 Test Item Value Reference Range Interpretation Comments ALT (test code = ALT) 22 See_Comment [Auto mated message] The system which ge nerated this result transmit mary alice reference range : <=65. The reference range was not used to interpr et this result as mark l/abnormal. [facility] SouthAirspan [id number] 09:23:00 Test Item Value Reference Range Interpretation Comments Total Protein (test code = Total 6.0 6.4-8.4 Protein) [facility]2018-03-14 09:23:00 Test Item Value Reference Range Interpretation Comments eGFR (test code = eGFR) 113 [facility]2018-03-14 09:23:00 Test Item Value Reference Range Interpretation Comments Calcium Lvl (test code = Calcium Lvl) 8.3 8.5-10.5 [facility] [id number] 09:23:00 Test Item Value Reference Range Interpretation Comments Sodium Lvl (test code = Sodium Lvl) 143 135-145 [facility] SouthAirspan [id number] 09:23:00 Test Item Value Reference Range Interpretation Comments Chloride Lvl (test code = Chloride Lvl) 109 95-109 [facility]2018-03-14 09:23:00 Test Item Value Reference Range Interpretation Comments AGAP (test code = AGAP) 13.3 10.0-20.0 [facility]2018-03-14 09:23:00 Test Item Value Reference Range Interpretation Comments CO2 (test code = CO2) 24 24-32 [facility]2018-03-14 09:23:00 Test Item Value Reference Range Interpretation Comments BUN (test code = BUN) 13 7-22 [facility]2018-03-14 09:23:00 Test Item Value Reference Range Interpretation Comments Glucose Lvl (test code = Glucose Lvl) 73 70-99 [facility]2018-03-14 09:23:00 Test Item Value Reference Range Interpretation Comments Creatinine Lvl (test code = Creatinine 0.46 0.50-1.40 Lvl) [facility]2018-03-14 09:23:00 Test Item Value Reference Range Interpretation Comments Phosphorus (test code = Phosphorus) 3.0 2.5-4.5 [facility]2018-03-14 09:23:00 Test Item Value Reference Range Interpretation Comments Magnesium Lvl (test code = Magnesium 1.8 1.8-2.4 Lvl) [facility] LancasterRvioqaxYVAOLIXRLK5575-01-87 09:23:00 Test Item Value Reference Range Interpretation Comments MCV (test code = MCV) 103.4 80.0-94.0 [facility] LancasterKoexivhZUHYXJYTPW0043-94-72 09:23:00 Test Item Value Reference Range Interpretation Comments Hct (test code = Hct) 37.3 42.0-54.0 [facility] LancasterTvgseugVNABXNWXGJ6370-59-82 09:23:00 Test Item Value Reference Range Interpretation Comments MCH (test code = MCH) 35.8 pg 27.0-31.0 [facility] LancasterFajjkljDUJOCECXUH4190-75-21 09:23:00 Test Item Value Reference Range Interpretation Comments WBC (test code = WBC) 9.2 3.7-10.4 [facility] LancasterJnxjsxsCSAYTUMCHH0226-82-73 09:23:00 Test Item Value Reference Range Interpretation Comments RBC (test code = RBC) 3.61 4.70-6.10 [facility]YshjzgmFSSRHBPCOI6105-29-18 09:23:00 Test Item Value Reference Range Interpretation Comments Hgb (test code = Hgb) 12.9 14.0-18.0 [facility] LancasterWifgyeuSNFBOZCTQZ5420-01-85 09:23:00 Test Item Value Reference Range Interpretation Comments RDW (test code = RDW) 13.4 11.5-14.5 [facility] LancasterSdyyldnGPSXRQJQOK4732-62-00 09:23:00 Test Item Value Reference Range Interpretation Comments MPV (test code = MPV) 7.6 7.4-10.4 [facility] LancasterCxlynkoTSUCENCYDV5813-60-15 09:23:00 Test Item Value Reference Range Interpretation Comments Platelet (test code = Platelet) 179 133-450 [facility] LancasterXiyrrrxGFLGMVSJUE4720-25-29 09:23:00 Test Item Value Reference Range Interpretation Comments MCHC (test code = MCHC) 34.6 32.0-36.0 [facility] LancasterBbhgwejBCROBGGHOW8839-01-80 09:23:00 Test Item Value Reference Range Interpretation Comments Macrocyte (test code = 1+ *ABN*(01/19/18 Macrocyte) 4:23 AM) [facility] LancasterTadsgxdKAGLOEXPZU1488-23-36 09:23:00 Test Item Value Reference Range Interpretation Comments Monocytes # (test code 0.9 See_Comment [Aut omated message] The = Monocytes #) system which generated this result tra nsmitted reference range : <=0.8. The reference r melody was not used to int erpret this result as normal/abnormal . [facility] LancasterHyfoqikGMRCXLOEGE6486-10-63 09:23:00 Test Item Value Reference Range Interpretation Comments Eosinophils # (test code 0.1 See_Comment [A utomated message] The = Eosinophils #) system whic h generated this result tra nsmitted reference range : <=0.5. The reference r melody was not used to int erpret this result as normal/abnormal . [facility] LancasterQjvtqugRTGCGPNHBU3817-52-66 09:23:00 Test Item Value Reference Range Interpretation Comments Lymphocytes (test code = Lymphocytes) 19.6 20.0-40.0 [facility] LancasterTiawgvfNMEOJPYARV4093-54-09 09:23:00 Test Item Value Reference Range Interpretation Comments Monocytes (test code = Monocytes) 9.3 2.0-12.0 [facility] LancasterUaenpocXPUJQUOMCR7809-94-24 09:23:00 Test Item Value Reference Range Interpretation Comments Segs (test code = Segs) 70.1 45.0-75.0 [facility] ClareZltglaqWFLXICANHY5402-56-26 09:23:00 Test Item Value Reference Range Interpretation Comments Segs-Bands # (test code = Segs-Bands #) 6.4 1.5-8.1 [facility] ClareFvekwkjLKPQYWVCUQ5974-56-44 09:23:00 Test Item Value Reference Range Interpretation Comments Lymphocytes # (test code = Lymphocytes 1.8 1.0-5.5 #) [facility] ClareZkyxfnhSZOIYSLUYA9082-55-10 09:23:00 Test Item Value Reference Range Interpretation Comments Eosinophils (test code = 0.6 See_Comment [A utomated message] The Eosinophils) system which ge nerated this result tra nsmitted reference range : <=4.0. The reference r melody was not used to int erpret this result as normal/abnormal . [facility] ClarePzqmqebYWVXDKFVCU3796-23-83 09:23:00 Test Item Value Reference Range Interpretation Comments Basophils (test code = 0.4 See_Comment [Aut omated message] The Basophils) system which ge nerated this result tra nsmitted reference range : <=1.0. The reference r melody was not used to int erpret this result as normal/abnormal . [facility]IRSMLXN7389[facility] 09:23:00 Test Item Value Reference Range Interpretation Comments Myoglobin (test code = Myoglobin) 122 25-72 [facility]PARATHYROID LNCFVUZ1332-05-03 09:23:00 Test Item Value Reference Range Interpretation Comments Ca Ion WB (test code = Ca Ion WB) 1.13 1.05-1.25 [facility]TribridgeROID DYKSQAB8926-14-04 09:23:00 Test Item Value Reference Range Interpretation Comments Ca Norm WB (test code = Ca Norm WB) 1.13 1.05-1.25 [facility]Style[facility] RPRAQPZ3684-57-06 09:23:00 Test Item Value Reference Range Interpretation Comments Antibody Scrn (test Negative (01/19/18 4:23 code = Antibody Scrn) AM) [facility] [id number] 09:23:00 Test Item Value Reference Range Interpretation Comments ABO/Rh (test code = ABO/Rh) A POS [facility] QWAYVSB7616-91-48 09:23:00 Test Item Value Reference Range Interpretation Comments Troponin-I (test code = Troponin-I) 1.48 <=0.40 [facility] PMHQIJU8540-67-97 09:23:00 Test Item Value Reference Range Interpretation Comments Total CK (test code = Total CK) 399 12-191 [facility]Mil[facility] DealAC CNCXGCR5789-61-53 09:23:00 Test Item Value Reference Range Interpretation Comments CK MB Index (test code = CK MB Index) 1.8 1 <=2.5 [facility] FSPABTS4788-53-86 09:23:00 Test Item Value Reference Range Interpretation Comments CK MB (test code = CK MB) 7.1 0.5-3.6 [facility] KRLNR9214-78-14 09:23:00 Test Item Value Reference Range Interpretation Comments Globulin (test code = Globulin) 2.9 2.7-4.2 [facility] [id number] 09:23:00 Test Item Value Reference Range Interpretation Comments A/G Ratio (test code = A/G Ratio) 1.1 1 0.7-1.6 [facility] RQPGB3906-16-16 09:23:00 Test Item Value Reference Range Interpretation Comments Bili Indirect (test code = Bili 0.4 <=1.0 Indirect) [facility] ZRCYT4044-27-80 09:23:00 Test Item Value Reference Range Interpretation Comments AST (test code = AST) 33 <=37 [facility] WBZMQ7189-28-95 09:23:00 Test Item Value Reference Range Interpretation Comments Alk Phos (test code = Alk Phos) 60 39-136 [facility] QGFGT2167-02-87 09:23:00 Test Item Value Reference Range Interpretation Comments Bili Total (test code = Bili Total) 0.6 0.2-1.3 [facility] HOWGR0117-45-77 09:23:00 Test Item Value Reference Range Interpretation Comments Bili Direct (test code = Bili Direct) 0.2 <=0.3 [facility] [id number] 09:23:00 Test Item Value Reference Range Interpretation Comments Albumin Lvl (test code = Albumin Lvl) 3.1 3.5-5.0 [facility]2018-03-14 09:23:00 Test Item Value Reference Range Interpretation Comments ALT (test code = ALT) 22 <=65 [place] 569968-03-14 09:23:00 Test Item Value Reference Range Interpretation Comments Total Protein (test code = Total 6.0 6.4-8.4 Protein) [place] 569968-03-14 09:23:00 Test Item Value Reference Range Interpretation Comments eGFR (test code = eGFR) 113 [facility]2018-03-14 09:23:00 Test Item Value Reference Range Interpretation Comments Calcium Lvl (test code = Calcium Lvl) 8.3 8.5-10.5 [facility]2018-03-14 09:23:00 Test Item Value Reference Range Interpretation Comments Sodium Lvl (test code = Sodium Lvl) 143 135-145 [facility]2018-03-14 09:23:00 Test Item Value Reference Range Interpretation Comments Chloride Lvl (test code = Chloride Lvl) 109 95-109 [facility]2018-03-14 09:23:00 Test Item Value Reference Range Interpretation Comments AGAP (test code = AGAP) 13.3 10.0-20.0 [facility]2018-03-14 09:23:00 Test Item Value Reference Range Interpretation Comments CO2 (test code = CO2) 24 24-32 [facility]2018-03-14 09:23:00 Test Item Value Reference Range Interpretation Comments BUN (test code = BUN) 13 7-22 [place] 569968-03-14 09:23:00 Test Item Value Reference Range Interpretation Comments Glucose Lvl (test code = Glucose Lvl) 73 70-99 [place] 569968-03-14 09:23:00 Test Item Value Reference Range Interpretation Comments Creatinine Lvl (test code = Creatinine 0.46 0.50-1.40 Lvl) [facility]2018-03-14 09:23:00 Test Item Value Reference Range Interpretation Comments Phosphorus (test code = Phosphorus) 3.0 2.5-4.5 [place] 569968-03-14 09:23:00 Test Item Value Reference Range Interpretation Comments Magnesium Lvl (test code = Magnesium 1.8 1.8-2.4 Lvl) [facility] LancasterNluqixzPUQMGKJIXM8653-28-44 09:23:00 Test Item Value Reference Range Interpretation Comments MCV (test code = MCV) 103.4 80.0-94.0 [facility] LancasterHqjaggwZLLEXRCZUI2896-15-57 09:23:00 Test Item Value Reference Range Interpretation Comments Hct (test code = Hct) 37.3 42.0-54.0 [facility] LancasterBuzfzrjQZHTCLHPUE0316-63-13 09:23:00 Test Item Value Reference Range Interpretation Comments MCH (test code = MCH) 35.8 pg 27.0-31.0 [facility] LancasterIzmyywcZPHHLTKMCC5501-23-20 09:23:00 Test Item Value Reference Range Interpretation Comments WBC (test code = WBC) 9.2 3.7-10.4 [facility] LancasterDurnbwuRFGTZTHWBQ3270-15-07 09:23:00 Test Item Value Reference Range Interpretation Comments RBC (test code = RBC) 3.61 4.70-6.10 [facility] LancasterVgwriwpSBMQXFEZOK3983-78-82 09:23:00 Test Item Value Reference Range Interpretation Comments Hgb (test code = Hgb) 12.9 14.0-18.0 [facility] LancasterUqrabbtFNWJKORESL0114-80-85 09:23:00 Test Item Value Reference Range Interpretation Comments RDW (test code = RDW) 13.4 11.5-14.5 [facility] LancasterOlscabhBUTMXCXTFM9722-47-96 09:23:00 Test Item Value Reference Range Interpretation Comments MPV (test code = MPV) 7.6 7.4-10.4 [facility] LancasterOeqvzboCVCHNALPBW2642-57-06 09:23:00 Test Item Value Reference Range Interpretation Comments Platelet (test code = Platelet) 179 133-450 [facility] LancasterWymhhukILTRBJDILO9429-24-40 09:23:00 Test Item Value Reference Range Interpretation Comments MCHC (test code = MCHC) 34.6 32.0-36.0 [facility] LancasterKcouijfMVEGIBZNEL2798-77-04 09:23:00 Test Item Value Reference Range Interpretation Comments Macrocyte (test code = 1+ *ABN*(01/19/18 Macrocyte) 4:23 AM) [facility] LancasterKiccejyWGZBKHNFQC3372-94-50 09:23:00 Test Item Value Reference Range Interpretation Comments Monocytes # (test code = Monocytes #) 0.9 <=0.8 [facility]TmwnlmiILMTSTTPUN3950-01-79 09:23:00 Test Item Value Reference Range Interpretation Comments Eosinophils # (test code = Eosinophils 0.1 <=0.5 #) [facility]HyfwacfAGODGTYYRM7242-44-73 09:23:00 Test Item Value Reference Range Interpretation Comments Lymphocytes (test code = Lymphocytes) 19.6 20.0-40.0 [facility] ClareKeqdfveTVISOTPFMG7535-13-51 09:23:00 Test Item Value Reference Range Interpretation Comments Monocytes (test code = Monocytes) 9.3 2.0-12.0 [facility] HospitalGvejvnfWFSJYJSKPC7278-42-48 09:23:00 Test Item Value Reference Range Interpretation Comments Segs (test code = Segs) 70.1 45.0-75.0 [facility] ClareLsbsandWWQTITCNHI7216-22-15 09:23:00 Test Item Value Reference Range Interpretation Comments Segs-Bands # (test code = Segs-Bands #) 6.4 1.5-8.1 [facility] ClareNiquubeTJUDHLBXFF1938-63-54 09:23:00 Test Item Value Reference Range Interpretation Comments Lymphocytes # (test code = Lymphocytes 1.8 1.0-5.5 #) [facility] HospitalDnkpmfyBZPEQJYZAX0955-47-86 09:23:00 Test Item Value Reference Range Interpretation Comments Eosinophils (test code = Eosinophils) 0.6 <=4.0 [facility] HospitalLmghvhjLMPAKVQOVI7895-91-00 09:23:00 Test Item Value Reference Range Interpretation Comments Basophils (test code = Basophils) 0.4 <=1.0 [facility] HospitalIgvcvedTTAJSTOYA1839-26-20 09:23:00 Test Item Value Reference Range Interpretation Comments Myoglobin (test code = Myoglobin) 122 25-72 [facility] HospitalPARATHYROID SYWVWDU3822-59-86 09:23:00 Test Item Value Reference Range Interpretation Comments Ca Ion WB (test code = Ca Ion WB) 1.13 1.05-1.25 [facility]PAR[facility]YRO[facility] DEJEBPS4156-77-77 09:23:00 Test Item Value Reference Range Interpretation Comments Ca Norm WB (test code = Ca Norm WB) 1.13 1.05-1.25 [facility] HospitalAublvtyKVSAWJ4936-82-11 01:55:00 Test Item Value Reference Range Interpretation Comments VLDL (test code = VLDL) 12 1 [facility] HospitalLipzoixBMFTTS8081-35-09 01:55:00 Test Item Value Reference Range Interpretation Comments LDL (Calculated) (test code = LDL 61 (Calculated)) [facility] 01:55:00 Test Item Value Reference Range Interpretation Comments Chol (test code = Chol) 136 [facility]AnpchxpVCVPRE9030-07-07 01:55:00 Test Item Value Reference Range Interpretation Comments Trig (test code = Trig) 62 [facility]DcldateAYSFFZ8151-02-17 01:55:00 Test Item Value Reference Range Interpretation Comments HDL (test code = HDL) 63 [facility]UckdwktERZGMU0171-30-38 01:55:00 Test Item Value Reference Range Interpretation Comments CHD Risk (test code = CHD Risk) 2.16 1 4.00-7.30 [facility] JKXCYIXXS2978-26-87 01:55:00 Test Item Value Reference Range Interpretation Comments Hgb A1C (test code = Hgb A1C) 5.2 [facility]RpdymbfYHATKN8720-55-36 01:55:00 Test Item Value Reference Range Interpretation Comments VLDL (test code = VLDL) 12 1 [facility]AmwaoimZCFATG5765-54-54 01:55:00 Test Item Value Reference Range Interpretation Comments LDL (Calculated) (test code = LDL 61 (Calculated)) [facility]FzjzgymMZPGYQ4226-06-47 01:55:00 Test Item Value Reference Range Interpretation Comments Chol (test code = Chol) 136 [facility]PcbueavHJBHZQ2978-63-05 01:55:00 Test Item Value Reference Range Interpretation Comments Trig (test code = Trig) 62 [facility]TesfbwzSXWBXT4166-26-35 01:55:00 Test Item Value Reference Range Interpretation Comments HDL (test code = HDL) 63 [facility]KyymvcdBSDLHP7160-88-99 01:55:00 Test Item Value Reference Range Interpretation Comments CHD Risk (test code = CHD Risk) 2.16 1 4.00-7.30 [facility] GNSBROCTK8846-58-47 01:55:00 Test Item Value Reference Range Interpretation Comments Hgb A1C (test code = Hgb A1C) 5.2 [facility] ClareNahwwzpOKGKAUJFLF7276-98-88 19:33:00 Test Item Value Reference Range Interpretation Comments G-value Rapid (test code = G-value 11.1 5.0-11.6 Rapid) [facility] LancasterHgjhrbzKLAUHJULRD7555-59-33 19:33:00 Test Item Value Reference Range Interpretation Comments Estimated % Lysis Rapid 1.6 See_Comment [Au tomated message] The (test code = Estimated syste m which generated % Lysis Rapid) this result t ransmitted reference range : <=7.5. The reference r melody was not used to int erpret this result as normal/abnormal . [facility] LancasterCdpuevdSIGNILDJMU3192-54-81 19:33:00 Test Item Value Reference Range Interpretation Comments Max Amplitude Rapid (test code = Max 69 mm 52-71 Amplitude Rapid) [facility] LancasterMhbxxfxVWSIPGPBOZ3126-49-72 19:33:00 Test Item Value Reference Range Interpretation Comments ACT (TEG) Rapid (test code = ACT (TEG) 113 s 86-118 Rapid) [facility] LancasterYqrszuvAGLZGTBTCQ2259-42-38 19:33:00 Test Item Value Reference Range Interpretation Comments Split Point Rapid (test code = Split 0.5 min Point Rapid) [facility] LancasterQeywsjbUOHQHHZQUK5487-52-13 19:33:00 Test Item Value Reference Range Interpretation Comments R-time Rapid (test code = R-time 0.7 min 0.4-0.7 Rapid) [facility] LancasterBztlgplFMIQMGLERP3122-49-00 19:33:00 Test Item Value Reference Range Interpretation Comments K-time Rapid (test code = K-time 0.9 min 0.6-2.3 Rapid) [facility] LancasterZegemjqTKBGSTFNUJ0633-40-87 19:33:00 Test Item Value Reference Range Interpretation Comments Angle Rapid (test code = Angle 77 degrees 64-80 Rapid) [facility] LancasterSbsaduvOHTZCBENEH7133-82-97 19:33:00 Test Item Value Reference Range Interpretation Comments G-value Rapid (test code = G-value 11.1 5.0-11.6 Rapid) [facility] LancasterFugghnwEARRMBDYAQ0659-82-80 19:33:00 Test Item Value Reference Range Interpretation Comments Estimated % Lysis Rapid (test code = 1.6 <=7.5 Estimated % Lysis Rapid) [facility] LancasterEkocpkqLULAZKTULH7423-16-19 19:33:00 Test Item Value Reference Range Interpretation Comments Max Amplitude Rapid (test code = Max 69 mm 52-71 Amplitude Rapid) [facility] LancasterNdnglqdSINQKFDINS5423-31-81 19:33:00 Test Item Value Reference Range Interpretation Comments ACT (TEG) Rapid (test code = ACT (TEG) 113 s 86-118 Rapid) [facility] LancasterIxmswbnDNIRZPAWUG1245-57-40 19:33:00 Test Item Value Reference Range Interpretation Comments Split Point Rapid (test code = Split 0.5 min Point Rapid) [facility] LancasterRgpiyogGGGIVDUGRH6704-86-00 19:33:00 Test Item Value Reference Range Interpretation Comments R-time Rapid (test code = R-time 0.7 min 0.4-0.7 Rapid) [facility] LancasterIxzobawFSBNFEAGVC4526-13-46 19:33:00 Test Item Value Reference Range Interpretation Comments K-time Rapid (test code = K-time 0.9 min 0.6-2.3 Rapid) [facility] LancasterHcssmqvEYPVVNTAMF2447-69-37 19:33:00 Test Item Value Reference Range Interpretation Comments Angle Rapid (test code = Angle 77 degrees 64-80 Rapid) [facility]2018-03-13 19:14:00 Test Item Value Reference Range Interpretation Comments POC Creatinine (test code = POC 0.6 0.5-1.4 Creatinine) [facility]2018-03-13 19:14:00 Test Item Value Reference Range Interpretation Comments POC Creatinine (test code = POC 0.6 0.5-1.4 Creatinine) [facility] LancasterUpfpnkcZBPNEYBZQK1276-99-71 19:10:00 Test Item Value Reference Range Interpretation Comments PT (test code = PT) 12.6 s 12.0-14.7 [facility] LancasterNjfxzrhSAAZNRKTRN0401-61-51 19:10:00 Test Item Value Reference Range Interpretation Comments INR (test code = INR) 0.94 1 0.85-1.17 [facility] LancasterZpthicqRBBFGQDBSL3907-94-41 19:10:00 Test Item Value Reference Range Interpretation Comments PTT (test code = PTT) 29.9 s 22.9-35.8 [facility] LancasterVzqbdkyLPWUOLTUIO1340-02-77 19:10:00 Test Item Value Reference Range Interpretation Comments PT (test code = PT) 12.6 s 12.0-14.7 [place] [address]-03-13 19:10:00 Test Item Value Reference Range Interpretation Comments INR (test code = INR) 0.94 1 0.85-1.17 [place] [address]-03-13 19:10:00 Test Item Value Reference Range Interpretation Comments PTT (test code = PTT) 29.9 s 22.9-35.8 [facility]
--- NOTE | 2023-10-05 14:00 | RAD REPORT ---
EXAM DESCRIPTION: RAD - Chest Single View - 10/05/2023 1:50 pm CLINICAL HISTORY: shortness of breath Chest pain. COMPARISON: <Comparisons> FINDINGS: Portable technique limits examination quality. Moderate bilateral pulmonary opacities are present which may represent pulmonary edema. The heart is moderately enlarged. No displaced fractures. IMPRESSION: Moderate CHF pattern.
[2023-10-05 14:14] LABS: Absolute Lymphocytes (CBC) 1.4 K/uL (0.7-4.9); Hematocrit 35.9 % (39.6-49.0); Lymphocytes % 13.6 % (15.3-44.8); MCV 98.9 fL (80-100); MPV 6.8 fL (7.6-11.3); Platelets 249 thou/uL (152-406); RBC Red Blood Cell Count 3.63 M/uL (4.33-5.43)
[2023-10-05] MEDS ORDERED: FUROSEMIDE 40 MG/4 ML VIAL ONE (14:27)
[2023-10-05 14:35] LABS: Albumin 3.3 g/dL (3.4-5.0); Bilirubin Direct 0.4 mg/dL (0-0.2); Bilirubin Indirect, Calculated 0.5 mg/dL (0.2-0.8); Bilirubin Total 0.9 mg/dL (0.2-1.0); Magnesium 2.3 mg/dL (1.6-2.4); Potassium 4.2 mEq/L (3.5-5.1); Protein, Total 7.5 g/dL (6.4-8.2); Troponin High Sensitivity 34.7 pg/mL (<58.9)
--- NOTE | 2023-10-05 14:44 | ER ---
Nurse's Notes [facility] Name: Yo Elizalde Age: 78 yrs Sex: Male : 1945 Arrival Date: 10/05/2023 Time: 13:18 Bed 16 Private MD: Diagnosis: Heart failure, unspecified;Acute pulmonary edema;Essential (primary) hypertension Presentation: 10/05 13:32 Chief complaint: Patient states: my legs are swelling for years, got worse over last 3 iw weeks , also is SOB X 1 month , was at the [place] today and was told to com to ER , denies chest pain. Coronavirus screen: At this time, the client does not indicate any symptoms associated with coronavirus-19. Ebola Screen: Patient negative for fever greater than or equal to 101.5 degrees Fahrenheit, and additional compatible Ebola Virus Disease symptoms Patient denies exposure to infectious person. Patient denies travel to an Ebola-affected area in the 21 days before illness onset. No symptoms or risks identified at this time. Initial Sepsis Screen: Does the patient meet any 2 criteria? No. Patient's initial sepsis screen is negative. Does the patient have a suspected source of infection? No. Patient's initial sepsis screen is negative. Risk Assessment: Do you want to hurt yourself or someone else? Patient reports no desire to harm self or others. Onset of symptoms was August 2023. 13:32 Method Of Arrival: Wheelchair iw 13:32 Acuity: MIO 3 iw Historical: - Allergies: 13:34 No Known Allergies; iw - Home Meds: 13:36 allopurinol 100 mg Oral tablet daily [Active]; apixaban 5 mg oral tablet 2 times per iw day [Active]; atorvastatin 80 mg oral tablet every day at bedtime [Active]; cyanocobalamin (vitamin B-12) 1,000 mcg oral tablet daily [Active]; empagliflozin 10 mg oral tablet daily [Active]; ergocalciferol (vitamin D2) 1,250 mcg (50,000 unit) oral capsule every week [Active]; ezetimibe 10 mg oral tablet daily [Active]; furosemide 10 mg Oral solution daily [Active]; metformin 500 mg Oral tablet daily [Active]; metoprolol tartrate 25 mg Oral tablet 2 times per day [Active]; nifedipine 90 mg Oral Tablet, Extended Release 24 hr daily [Active]; potassium chloride 10 mEq oral Tablet, ER Particles/Crystals daily [Active]; - PMHx: 13:34 Hypertensive disorder; Gout; Diabetes mellitus; CVA; iw 13:35 Hypercholesterolemia; osteoarthirits; iw - Social history:: Smoking status: Patient/guardian denies using tobacco, the patient reports quitting approximately 5 years ago. Screenin:11 [facility] ED Fall Risk Assessment (Adult) History of falling in the last 3 months, mb9 including since admission No falls in past 3 months (0 pts) Confusion or Disorientation No (0 pts) Intoxicated or Sedated No (0 pts) Impaired Gait No (0 pts) Mobility Assist Device Used No (0 pt) Altered Elimination No (0 pt) Score/Fall Risk Level 0 - 2 = Low Risk Oriented to surroundings, Maintained a safe environment, Educated pt \T\ family on fall prevention, incl call for assistance when getting out of bed. Abuse screen: Denies threats or abuse. Nutritional screening: No deficits noted. Tuberculosis screening: No symptoms or risk factors identified. Assessment: 14:10 General: Appears in no apparent distress. Behavior is calm, cooperative. Pain: Denies mb9 pain. Cardiovascular: Heart tones S1 S2 present Patient's skin is warm and dry. Rhythm is regular. Cardiovascular: Edema is 2+ to left midcalf, left ankle, left foot, left toes, right midcalf, right ankle, right foot and right toes. Respiratory: Reports shortness of breath Airway is patent Respiratory effort is even, unlabored, Respiratory pattern is regular, symmetrical, Breath sounds are clear bilaterally. GI: Abdomen is round obese, Bowel sounds present X 4 quads. Abd is soft and non tender X 4 quads. : No signs and/or symptoms were reported regarding the genitourinary system. EENT: No signs and/or symptoms were reported regarding the EENT system. Derm: Musculoskeletal: Range of motion: intact in all extremities. Vital Signs: 13:32 BP 170 / 64; Pulse 72; Resp 18; Temp 99.6; Pulse Ox 92% on R/A; iw 14:12 BP 132 / 56; Pulse 75; Resp 18; Pulse Ox 93% on R/A; mb9 16:35 BP 147 / 57; Pulse 77; Resp 18; Pulse Ox 93% on R/A; mb9 ED Course: 13:24 Patient arrived in ED. mg5 13:28 Beni Bull DO is Attending Physician. ms3 13:34 Triage completed. iw 13:35 Arm band placed on. iw 13:43 Carole Capps, RN is Primary Nurse. mb9 13:51 XRAY Chest (1 view) In Process Unspecified. EDMS 14:00 Inserted saline lock: 20 gauge in left forearm, using aseptic technique. mb9 14:10 EKG done, by ED staff. tm3 14:11 Placed in gown. Bed in low position. Call light in reach. Side rails up X 1. Client mb9 placed on continuous cardiac and pulse oximetry monitoring. NIBP monitoring applied. cardiac monitor on. 14:12 No provider procedures requiring assistance completed. mb9 14:56 initiated transfer to [facility], faxed chart to [place] er as requested by transfer center.bd 16:44 Patient transferred, IV remains in place. mb9 16:54 pt accepted in transfer to [place] by dr Wilson,admin approval given by Jasmyne Edmondsonpt going to ER, will be transported by ems. Administered Medications: 14:17 Drug: Furosemide IVP 40 mg IVP once; give over 2 minutes Route: IVP; Site: left forearm;mb9 Medication: 14:11 VIS not applicable for this client. mb9 Outcome: 14:43 ER care complete, transfer ordered by . ms3 16:44 Transferred by ground EMS Transfer form completed. Note: report given to tranferring olivia palmer RN 16:44 Condition: stable 16:44 Instructed on the need for transfer, 17:52 Patient left the ED. mb9 Signatures: Dispatcher [employer] EDMS Samantha Canales bd Cedric Davei tm3 Anjelica Ramirez, RN RN iw Beni Bull DO DO ms3 Carole Capps, RN RN mb9 [facility] Corrections: (The following items were deleted from the chart) 13:34 13:32 Resp 18bpm; Temp 99.6F; iw iw
--- NOTE | 2023-10-05 14:44 | EDPHYS ---
Physician Documentation [facility] [place], [place] Name: Yo Elizalde Age: 78 yrs Sex: Male : 1945 Arrival Date: 10/05/2023 Time: 13:18 Bed 16 Private MD: ED Physician Beni Bull HPI: 10/05 13:38 This 78 yrs old Male presents to ER via Wheelchair with complaints of Shortness Of ms3 Breath, Leg Swelling. 13:38 78-year-old male with past medical history of hypertension, gout, diabetes, CVA, ms3 hyperlipidemia, osteoarthritis presents to the emergency department for swelling of bilateral lower extremity has become worse over the last 3 weeks and shortness of breath that is been ongoing for 1 month. [facility] go to the [facility] department. Patient denies chest pain, nausea, vomiting. Patient states he becomes short of breath with minimal walking.. Historical: - Allergies: 13:34 No Known Allergies; iw - Home Meds: 13:36 allopurinol 100 mg Oral tablet daily [Active]; apixaban 5 mg oral tablet 2 times per iw day [Active]; atorvastatin 80 mg oral tablet every day at bedtime [Active]; cyanocobalamin (vitamin B-12) 1,000 mcg oral tablet daily [Active]; empagliflozin 10 mg oral tablet daily [Active]; ergocalciferol (vitamin D2) 1,250 mcg (50,000 unit) oral capsule every week [Active]; ezetimibe 10 mg oral tablet daily [Active]; furosemide 10 mg Oral solution daily [Active]; metformin 500 mg Oral tablet daily [Active]; metoprolol tartrate 25 mg Oral tablet 2 times per day [Active]; nifedipine 90 mg Oral Tablet, Extended Release 24 hr daily [Active]; potassium chloride 10 mEq oral Tablet, ER Particles/Crystals daily [Active]; - PMHx: 13:34 Hypertensive disorder; Gout; Diabetes mellitus; CVA; iw 13:35 Hypercholesterolemia; osteoarthirits; iw - Social history:: Smoking status: Patient/guardian denies using tobacco, the patient reports quitting approximately 5 years ago. ROS: 13:38 Constitutional: Negative for fever, and chills. Neck: Negative for injury, pain, and ms3 swelling, Cardiovascular: Negative for chest pain, and palpitations. 13:38 Abdomen/GI: Negative for abdominal pain, nausea, vomiting, diarrhea, and constipation, MS/Extremity: Negative for injury and deformity, Skin: Negative for injury, rash, and discoloration, 13:38 Respiratory: Positive for shortness of breath, 13:38 All other systems are negative, Exam: 13:38 Constitutional: This is a well developed, well nourished patient who is awake, alert, ms3 and in no acute distress. Head/Face: Normocephalic, atraumatic. Chest/axilla: Normal chest wall appearance and motion. Nontender with no deformity. Cardiovascular: Regular rate and rhythm with a normal S1 and S2. No gallops, murmurs, or rubs. Normal PMI, no JVD. No pulse deficits. 13:38 Respiratory: the patient does not display signs of respiratory distress, Respirations: normal, Breath sounds: rales, that are moderate, are located in both bases, 13:38 Musculoskeletal/extremity: Bialteral 3+pedal edema. 14:13 ECG was reviewed by the Attending Physician. ms3 Vital Signs: 13:32 BP 170 / 64; Pulse 72; Resp 18; Temp 99.6; Pulse Ox 92% on R/A; iw 14:12 BP 132 / 56; Pulse 75; Resp 18; Pulse Ox 93% on R/A; mb9 16:35 BP 147 / 57; Pulse 77; Resp 18; Pulse Ox 93% on R/A; mb9 MDM: 13:38 Differential diagnosis: Anemia CHF exacerbation, Chronic Obstructive Pulmonary Disease ms3 Myocardial Infarction pulmonary edema. 14:01 Patient medically screened. ms3 14:44 Data reviewed: vital signs, nurses notes, and as a result, I will transfer patient. ms3 Consideration of Admission/Observation Will transfer to [place] . I considered the following discharge prescriptions or medication management in the emergency department Medications were administered in the Emergency Department. See MAR. Independent interpretation of the following test(s) in the Emergency Department EKG: See my EKG interpretation above X-Ray: My interpretation is CXR image reviewed shows bilateral pulmonary edema. Care significantly affected by the following chronic conditions: Diabetes, Hypertension. Counseling: I had a detailed discussion with the patient and/or guardian regarding the historical points, exam findings, and any diagnostic results supporting the discharge/admit diagnosis, lab results, radiology results, the need to transfer to another facility, [facility] ED course: Patient requests to be transferred to the [place]. Will attempt to transfer patient to [place].. 16:09 ED course: Discussed case with Dr Wilson. Patient accepted for heart failure. All ms3 questions answered. Discussed acceptance with patient. Patient remains in stable condition at this time.. 10/05 13:38 Order name: Basic Metabolic Panel; Complete Time: 14:38 ms3 10/05 13:38 Order name: CBC with Diff; Complete Time: 14:38 ms3 10/05 13:38 Order name: LFT's; Complete Time: 14:38 ms3 10/05 13:38 Order name: Magnesium; Complete Time: 14:38 ms3 10/05 13:38 Order name: NT PRO-BNP; Complete Time: 14:38 ms3 10/05 13:38 Order name: Troponin HS; Complete Time: 14:38 ms3 10/05 13:38 Order name: XRAY Chest (1 view); Complete Time: 14:01 ms3 10/05 13:38 Order name: EKG; Complete Time: 13:39 ms3 10/05 13:38 Order name: Cardiac monitoring; Complete Time: 13:44 ms3 10/05 13:38 Order name: EKG - Nurse/Tech; Complete Time: 14:05 ms3 10/05 13:38 Order name: IV Saline Lock; Complete Time: 14:05 ms3 10/05 13:38 Order name: Labs collected and sent; Complete Time: 14:05 ms3 10/05 13:38 Order name: O2 Per Protocol; Complete Time: 13:44 ms3 10/05 13:38 Order name: O2 Sat Monitoring; Complete Time: 13:44 ms3 EC:13 Rate is 83 beats/min. Rhythm is irregularly irregular. QRS [place] is Normal. QRS interval ms3 is prolonged. Clinical impression: Atrial Fibrillation. Interpreted by me. Reviewed by me. Administered Medications: 14:17 Drug: Furosemide IVP 40 mg IVP once; give over 2 minutes Route: IVP; Site: left forearm;mb9 Disposition Summary: 10/05/23 14:43 Transfer Ordered Notes: Transfer Location: [facility] ms3 Reason: Higher level of care ms3 Condition: Stable ms3 Problem: new ms3 Symptoms: are unchanged ms3 Accepting Physician: Dr Wilson(10/05/23 17:52) olivia Diagnosis - Heart failure, unspecified ms3 - Acute pulmonary edema ms3 - Essential (primary) hypertension ms3 Discharge Instructions: - Discharge Summary Sheet ms3 Forms: - Medication Reconciliation Form ms3 - SBAR form ms3 Signatures: Dispatcher [employer] Anjelica Robin RN RN iw Sims, Marcus, DO DO ms3 Carole Capps RN RN mb9 Corrections: (The following items were deleted from the chart) 16:09 14:43 Dr [email or web address] ms3 17:52 16:09 Dr Wilson ms3 mb9
[2023-10-05 18:11] VITALS: TEMP 99.6
[2023-10-05 18:12] VITALS: O2SAT 93
[2023-10-05 18:13] VITALS: BP 147/57
--- NOTE | 2023-10-07 15:21 | EKG ---
Test Date: 2023-10-05 Test Time: 13:57:01 Paint Mixer: MARTHA MEASUREMENT RESULTS: Intervals: Rate: 83 DE: QRSD: 160 QT: 418 QTc: 491 [place]: P: DE: QRS: -77 T: 72 INTERPRETIVE STATEMENTS: Atrial fibrillation Left axis deviation Right bundle branch block Septal infarct, age undetermined T wave abnormality, consider lateral ischemia Abnormal ECG Compared to ECG 07/31/2022 16:51:27 Right bundle-branch block now present Myocardial infarct finding now present T-wave abnormality now present Left bundle-branch block no longer present ST (T wave) deviation no longer present Possible ischemia still present Electronically Signed On 10-07-23 15:13:40 SCIENCE EDUCATION PROFESSOR by Jasson Miranda
== END 2023-10-05 17:52 ==
LOC: ER 13:18
DX: I50.9 Heart failure, unspecified (principal); J81.0 Acute pulmonary edema; I10 Essential (primary) hypertension; E11.9 Type 2 diabetes mellitus without complications; Z86.73 Personal history of transient ischemic attack (TIA), and cerebral infarction without residual deficits
CPT/HCPCS: 93005; 85025; 80048; 36415; 83735; 80076; 84484; 83880; 71045; 96374; 99285; J1940

== ENCOUNTER → 2024-01-12 | Emergency (ER) | payer OTHER ==
[~2024-01-12] MED LIST: OXYMETAZOLINE HCL 0.05% 15ML NAS ONE
--- NOTE | 2024-01-12 13:30 | EDPHYS ---
Physician Documentation [facility] Name: Yo Elizalde Age: 78 yrs Sex: Male : 1945 Arrival Date: 01/12/2024 Time: 11:41 Bed 12 Private MD: ED Physician Ravinder Malcolm HPI: 01/11 13:26 This 78 yrs old Male presents to ER via Ambulatory with complaints of Nose Bleed. rn 13:26 The patient presents with a nose bleed, that is apparently anterior. Onset: The rn symptoms/episode began/occurred yesterday. Modifying factors: The symptoms are alleviated by pressure. Severity of symptoms: At their worst the symptoms were mild in the emergency department the symptoms are unchanged. The patient has not experienced similar symptoms in the past. Patient reports nosebleed that started yesterday, intermittent. Not on blood thinners. No trauma. Bleeding from right nostril. Historical: - Allergies: 12:23 No Known Allergies; bp - PMHx: 12:23 CVA; diabetes mellitus; Gout; Hypercholesterolemia; Hypertensive disorder; bp osteoarthirits; - Immunization history:: Adult Immunizations up to date. - Social history:: Smoking status: Patient denies any tobacco usage or history of. - Family history:: not pertinent. - Hospitalizations: : No recent hospitalization is reported. ROS: 13:26 Constitutional: Negative for fever, chills, and weight loss, ENT: Positive for rn nosebleed Cardiovascular: Negative for chest pain, palpitations, and edema, Respiratory: Negative for shortness of breath, cough, wheezing, and pleuritic chest pain, Abdomen/GI: Negative for abdominal pain, nausea, vomiting, diarrhea, and constipation, Exam: 13:26 Constitutional: This is a well developed, well nourished patient who is awake, alert, rn and in no acute distress. ENT: Slow bleed right nare, site of bleed not visible Cardiovascular: Regular rate and rhythm. No pulse deficits. Vital Signs: 12:22 BP 136 / 65; Pulse 76; Resp 16; Temp 98; Pulse Ox 97% ; bp Procedures: 13:26 Epistaxis treatment: A small amount of bleeding noted from Treated using Oxymetazoline rn sprays, nasal clamp, Bleeding stopped. MDM: 11:56 Patient medically screened. rn 13:26 Differential diagnosis: spontaneous epistaxis. Data reviewed: vital signs, nurses rn notes, and as a result, I will discharge patient. Counseling: I had a detailed discussion with the patient and/or guardian regarding the historical points, exam findings, and any diagnostic results supporting the discharge/admit diagnosis, the need for outpatient follow up, to return to the emergency department if symptoms worsen or persist or if there are any questions or concerns that arise at home. Response to treatment: the patient's symptoms have resolved after treatment, and as a result, I will discharge patient. Administered Medications: 12:29 Drug: Oxymetazoline Intranasal Drops (0.05 %) 1 sprays Intranasal once Route: bp Intranasal; Site: right nare; Disposition Summary: 01/12/24 13:30 Discharge Ordered Notes: Location: Home rn Problem: new rn Symptoms: have improved rn Condition: Stable rn Diagnosis - Epistaxis rn Followup: rn - With: Ena Conway MD - When: As needed - Reason: Recheck today's complaints, Re-evaluation by your physician Discharge Instructions: - Discharge Summary Sheet rn - Nosebleed, Adult rn Forms: - Medication Reconciliation Form rn - Thank You Letter rn - Antibiotic learning and development manager - Prescription Opioid Use rn - Patient Portal Instructions rn - Leadership Thank You Letter rn Signatures: Ravinder Malcolm MD MD rn Peltier, Brian, RN RN bp
--- NOTE | 2024-01-12 13:30 | ER ---
Nurse's Notes [facility] Name: Yo Elizalde Age: 78 yrs Sex: Male : 1945 Arrival Date: 01/12/2024 Time: 11:41 Bed 12 Private MD: Diagnosis: Epistaxis Presentation: 01/11 12:22 Chief complaint: Patient states: NOSEBLEED SINCE THIS AM. Coronavirus screen: At this bp time, the client does not indicate any symptoms associated with coronavirus-19. Ebola Screen: No symptoms or risks identified at this time. Initial Sepsis Screen: Does the patient meet any 2 criteria? No. Patient's initial sepsis screen is negative. Does the patient have a suspected source of infection? No. Patient's initial sepsis screen is negative. Risk Assessment: Do you want to hurt yourself or someone else? Patient reports no desire to harm self or others. Onset of symptoms was January 12, 2024. 12:22 Method Of Arrival: Ambulatory bp 12:22 Acuity: MIO 4 bp Triage Assessment: 12:23 General: Appears in no apparent distress. Behavior is calm, cooperative, appropriate bp for age. Pain: Denies pain. Historical: - Allergies: 12:23 No Known Allergies; bp - PMHx: 12:23 CVA; diabetes mellitus; Gout; Hypercholesterolemia; Hypertensive disorder; bp osteoarthirits; - Immunization history:: Adult Immunizations up to date. - Social history:: Smoking status: Patient denies any tobacco usage or history of. - Family history:: not pertinent. - Hospitalizations: : No recent hospitalization is reported. Screenin:05 [facility] ED Fall Risk Assessment (Adult) History of falling in the last 3 months, bp including since admission No falls in past 3 months (0 pts). Abuse screen: Denies threats or abuse. Denies injuries from another. Nutritional screening: No deficits noted. Tuberculosis screening: No symptoms or risk factors identified. Assessment: 14:05 Reassessment: DC HOME AMBULATORY. bp Vital Signs: 12:22 BP 136 / 65; Pulse 76; Resp 16; Temp 98; Pulse Ox 97% ; bp ED Course: 11:43 Patient arrived in ED. im 11:56 Ravinder Malcolm MD is Attending Physician. rn 12:23 Triage completed. bp 12:23 Arm band placed on. bp 13:30 Ena Conway MD is Referral Physician. rn 14:05 Best Jacobs, RN is Primary Nurse. bp 14:05 Patient has correct armband on for positive identification. bp 14:05 No provider procedures requiring assistance completed. Patient did not have IV access bp during this emergency room visit. Administered Medications: 12:29 Drug: Oxymetazoline Intranasal Drops (0.05 %) 1 sprays Intranasal once Route: bp Intranasal; Site: right nare; Medication: 14:05 VIS not applicable for this client. bp Outcome: 13:30 Discharge ordered by . rn 14:05 Discharged to home ambulatory, bp 14:05 Condition: stable 14:05 Discharge instructions given to patient, Instructed on discharge instructions, follow up and referral plans. Demonstrated understanding of instructions, follow-up care, 14:06 Patient left the ED. bp Signatures: Ravinder Malcolm MD MD rn Best Jacobs, RN RN bp Kathy Olmos
[2024-01-12 14:15] VITALS: BP 136/65; TEMP 98; O2SAT 97
== END ==
LOC: ER 11:41
DX: R04.0 Epistaxis (principal)
CPT/HCPCS: 30901; 99283